=== PATIENT | female | born 1950 | race African-American/Black ===

== ENCOUNTER 2017-01-02 10:29 | Inpatient (IN) ==
[2017-01-02 11:03] LABS: Basophils % 0.6 % (0.0-0.8); Eosinophils # 0.2 10*3/uL (0.0-0.87); Eosinophils % 6.2 % (0.00-10.9); Hematocrit 25.8 VOL% (35.7-47.0); Lymphocytes # 1.1 10*3/uL (1.4-4.0); Lymphocytes % 33.2 % (21.3-54.2); Mean Corpuscular Hemoglobin 27 PG (27-34); Mean Corpuscular Volume 86.9 FL (87-102); Mean Platelet Volume 11.4 FL (9.6-12.0); Monocytes # 0.4 10*3/uL (0.11-0.8); Monocytes % 11.7 % (1.7-12.7); Neutrophils # 1.6 10*3/uL (1.4-7.4); Neutrophils % 48.3 % (38.7-73.9); Platelet Count 84 T/CUMM (130-400); Red Blood Count 2.97 MC/CUMM (3.8-5.5); Red Cell Distribution Width 20.9 % (9.3-17.3); White Blood Count 3.3 T/CUMM (4-12)
[2017-01-02 11:13] LABS: PT Patient Result 10.4 SECS; Partial Thromboplastin Time 25.9 SECS (0-40)
[2017-01-02 11:45] LABS: Alanine Aminotransferase 25 U/L (13-56); Albumin 3.5 G/DL (3.4-5.0); Alkaline Phosphatase 48 U/L (45-117); Aspartate Amino Transferase 22 U/L (0-37); Bilirubin,Total < 0.39 MG/DL (0.2-1.0); Blood Urea Nitrogen 24 MG/DL (7-18); Calcium 8.9 MG/DL (8.5-10.1); Glucose 160 MG/DL (74-106); Osmolality,Calculated 287.3 MOS/KG (273-304); Potassium 4.2 MMOL/L (3.5-5.1); Sodium 141 MMOL/L (136-145); Total Protein 6.6 G/DL (6.4-8.3)
--- NOTE | 2017-01-02 12:25 | Emergency Department Note ---
Haroon Lopez Brooke, am scribing for, and in the presence of, Thom Nino MD 10:53. Trung Lopez Hans, MD, personally performed the services described in this documentation, ascribed by Madisyn Patiño in my presence, and it is both accurate and complete . Arrival - Arrival Chief Complaint: GI Bleed/Rectal Stated Complaint: rectal bleeding ED Nursing Triage Note: Pt c/o bright red rectal bleeding and weakness started this am. Denies abd pain. Mode of Arrival: Wheelchair Limitations: No Limitations Source: Patient, RN Notes Reviewed Time Seen by Provider: 01/02/17 10:41 - History of Present Illness HPI Narrative: Patient is a 66 year old female who presents to the ED with c/o rectal bleeding that started this morning. Patient was diagnosed with colon cancer on December 05, 2016. She is scheduled to have her large intestines removed on Thursday, by Dr. Pratt. Patient describes the blood as bright red but denies any clots. She only notices the blood when she has a bowel movement and says it is not a lot of blood. She does have hemorrhoids but says the bleeding she is having today is worse than the bleeding she normally has with the hemorrhoids. She says she had some "serous" bleeding in June 2016 and says she was told she had diverticulosis. Patient also complains of her legs being weak and lack of energy but denies having any abdominal pain. Patient says she has bruised easily for "years." She also has PMHx of NIDDM, RA, anemia, carpal tunnel syndrome, and eczema. She takes ASA daily. Onset (ago): day(s) (1) Allergies/Adverse Reactions: Allergies Allergy/AdvReac Type Severity Reaction Status Date / Time No Known Allergies Allergy Verified 07/01/16 15:19 Home Medications: Home Medications Medication Instructions Recorded Confirmed Type Gabapentin 100 mg PO TID 07/01/16 01/02/17 History Meloxicam [Mobic] 7.5 mg PO BID 07/01/16 01/02/17 History Metformin HCl 500 mg PO BID 07/01/16 01/02/17 History glipiZIDE [Glipizide] 5 mg PO BID 07/01/16 01/02/17 History Pantoprazole Sodium 1 tablet PO DAILY 12/22/16 01/02/17 History Aspirin EC Tab 325 mg PO DAILY 01/02/17 01/02/17 History Cyanocobalamin Tab [Vitamin B12 500 mcg PO QPM 01/02/17 01/02/17 History Tab] Review of System - Review of System 12 point system: reviewed and no additional remarkable complaints except as stated - Review of System Constitutional: Absent: fever Respiratory: Absent: respiratory distress Gastrointestinal: Present: hematochezia. Absent: abdominal pain Skin: Absent: rash Neurological: Present: weakness (generalized) Medical,Surgical,& Family Hx - Medical History Neurology: No history of: Seizures HEENT: History of: Ear Problem (SLIGHT [place]), Eye Problem (GLASSES) Endocrine: History of: Diabetes Mellitus (NIDDM) Rheumatology: History of;: Rheumatoid Arthritis Respiratory: No history of: Respiratory Problems (FLU VAC- YES; PNEU VAC- YES.) Gastrointestinal: History of: Diverticulitis/ Diverticulosis, Gastrointestinal Bleed, Gastrointestinal Cancer Musculoskeletal: History of: Musculoskeletal Problems (CARPAL TUNNEL SYNDROME) Hematology: History of: Anemia Reproductive: History of: Breast Cancer (BENIGN CYSTS) Other: History of: Cancer (COLON CA), Eczema - Surgical History HEENT Surgeries: Surgical HX of: Tonsilectomy & Adenoidectomy Abdominal Surgeries: Surgical HX of: Colonoscopy Reproductive Surgeries: Surgical HX of;: Breast Surgery (YESI MASTECTOMY), Tubal Ligation - Family History Family History: Reports;: Family Cancer (MOTHER FATHER SISTER) - Social History Smoking Status: Never smoker Exam Vital Signs: Vital Signs Temperature 99.1 F 01/02/17 10:29 Pulse Rate 105 H 01/02/17 10:29 Respiratory Rate 18 01/02/17 10:29 Blood Pressure 101/67 01/02/17 10:29 O2 Sat by Pulse Oximetry 100 01/02/17 10:29 - General General appearance: alert, in no apparent distress - Head Head exam: Present: atraumatic, normocephalic - Eye Eye exam: Present: normal appearance, PERRL, EOMI - ENT ENT exam: Present: normal exam - Neck Neck exam: Present: normal inspection - Chest Chest inspection: Present: normal inspection, symmetric chest wall rise - Respiratory Respiratory exam: Present: normal lung sounds bilaterally - Cardiovascular Cardiovascular exam: Present: regular rate, normal rhythm, normal heart sounds - Abdominal Exam Abdominal exam: Present: soft. Absent: distention, tenderness - Rectal Exam Rectal exam: Present: heme (+) stool, hemorrhoids (internal and external- no active bleeding), other (blood in the rectal vault). Absent: mass - Extremities Exam Extremities exam: Present: normal inspection - Back Exam Back exam: Present: normal inspection - Neurological Exam Neurological exam: Present: alert, oriented X3 - Psychiatric Psychiatric exam: Present: normal affect, normal mood - Skin Skin exam: Present: warm, dry, intact, normal color Course Course Narrative: This patient was evaluated with blood work and type and screen was ordered. The patient was anemic and had some dyspnea as well as some tachycardia when she came in with painless rectal bleeding. Her rectal exam revealed some internal hemorrhoids but there is no friability or active bleeding from these. She is going to be seen for admission for transfusion given her symptomatic anemia and for rectal bleeding. She is on the schedule for a colectomy by Dr. Pratt on Thursday. Dr. Wick is her structural iron erector. Results - Labs CBC & BMP: 01/02/17 10:55 01/02/17 10:55 Lab Results: I have reviewed the patients labs Labs: Laboratory Tests 01/02/17 01/02/17 10:55 10:55 WBC 3.3 L RBC 2.97 L Hgb 8.0 L Hct 25.8 L MCV 86.9 L MCH 27 MCHC 31.0 L RDW 20.9 H Plt Count 84 L MPV 11.4 Neut % (Auto) 48.3 Lymph % (Auto) 33.2 [place] % (Auto) 11.7 Eos % (Auto) 6.2 Baso % (Auto) 0.6 Neut # (Auto) 1.6 Lymph # (Auto) 1.1 L [place] # (Auto) 0.4 Eos # (Auto) 0.2 Baso # (Auto) 0.0 Immature Gran % 0.0 Nucleated RBC % 0.0 Immature Gran # 0.00 Nucleated RBCs # 0.00 INR 1.0 PT Patient/Control Mix 10.4 Circ Anticoag PTT 25.9 Disposition Clinical Impression: Lower gastrointestinal hemorrhage Case discussed with: patient Disposition: Still a Patient Condition: Stable Instructions: Rectal Bleeding (ED) Time of Disposition: 12:25
[2017-01-02 12:39] LABS: Hypochromasia Slight; Polychromasia Slight
[2017-01-02] MEDS ORDERED: ACETAMINOPHEN 325 MG TABLET PO PRN (13:13)
[2017-01-02] MEDS ORDERED: guaiFENesin/DM ER 600-30 MG TABLET PO PRN (13:13)
[2017-01-02] MEDS ORDERED: PROMETHAZINE 25 MG/1 ML VIAL IM PRN (13:13)
[2017-01-02] MEDS ORDERED: MORPHINE 2 MG/1 ML SYRINGE IV PRN (13:13)
[2017-01-02] MEDS ORDERED: ONDANSETRON 4 MG/2 ML VIAL IV PRN (13:13)
[2017-01-02] MEDS ORDERED: DOCUSATE SODIUM 100 MG CAPSULE PO PRN (13:13)
[2017-01-02] MEDS ORDERED: diphenhydrAMINE CAP 25 MG CAPSULE PO PRN (13:13)
--- NOTE | 2017-01-02 13:30 | Hospitalist History & Physical ---
Assessment and Plan - Time spent with patient Time spent with patient: Greater than 30 minutes (1) Pancytopenia Status: Acute Current Visit: Yes (2) Colon cancer Status: Acute Assessment and plan: 66-year-old -Citizen Of [place] female with history of diabetes, colon cancer, pancytopenia admitted with rectal bleeding. Patient does have colon cancer and is scheduled for colectomy by Dr. Santa VAZQUEZ this coming Thursday. Unsure if the bleeding is from diverticulitis cyst seen on Dr. Wick scope in November or if it is from this mass in her colon. We will go ahead and consult Dr. Wick and Dr. Santa VAZQUEZ for evaluation. We will go ahead and give patient 1 unit of blood and some fluids. We will put her on sliding scale insulin for her diabetes and monitor closely. Dr. Liu will see and examine patient with further recommendations to follow Current Visit: Yes (3) Diabetes Status: Acute Current Visit: Yes (4) Lower gastrointestinal hemorrhage Status: Acute Current Visit: Yes History of Present Illness Chief complaint: Rectal bleeding History of present illness: Ms. Nash is a 66 year old -Citizen Of [place] female with history of diabetes, RA , anemia with intermittent pancytopenia, carpal tunnel syndrome, colon cancer and eczema presenting to the ED with rectal bleeding and fatigue that started this morning. Patient states he was having a bowel movement when she had bright red blood per rectum in the toilet. She denies dizziness, shortness of breath, chest pain, abdominal pain, or lower extremity swelling. She was admitted back in June with a GI bleed and was supposed to follow-up with [facility] but never did until November. He did a scope and found a colon cancer and she was subsequently sent to Dr. Pratt the third for evaluation. Patient is scheduled on 01/06/2017 for a colectomy. Patient has a low-grade fever and she is mildly tachycardic with her blood pressure 101/67. She is pancytopenic with an H&H of 8/25.8. Her platelets are 84. 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 She also states her sister of leukemia. After discussion with Dr. Nino the ED physician and Dr. Liu the admitting hospitalist it was agreed patient would be admitted for further evaluation. Home Medications Medication Instructions Recorded Confirmed Type Gabapentin 100 mg PO TID 07/01/16 01/02/17 History Meloxicam [Mobic] 7.5 mg PO BID 07/01/16 01/02/17 History Metformin HCl 500 mg PO BID 07/01/16 01/02/17 History glipiZIDE [Glipizide] 5 mg PO BID 07/01/16 01/02/17 History Pantoprazole Sodium 1 tablet PO DAILY 12/22/16 01/02/17 History Aspirin EC Tab 325 mg PO DAILY 01/02/17 01/02/17 History Cyanocobalamin Tab [Vitamin B12 500 mcg PO QPM 01/02/17 01/02/17 History Tab] Allergies Allergy/AdvReac Type Severity Reaction Status Date / Time No Known Allergies Allergy Verified 07/01/16 15:19 Medical,Surgical,& Family Hx - Medical History Neurology: No history of: Seizures HEENT: History of: Ear Problem ([place]IGHT [place]), Eye Problem (GLASSES) Endocrine: History of: Diabetes Mellitus (NIDDM) Rheumatology: History of;: Rheumatoid Arthritis Respiratory: No history of: Respiratory Problems (FLU VAC- YES; PNEU VAC- YES.) Gastrointestinal: History of: Diverticulitis/ Diverticulosis, Gastrointestinal Bleed, Gastrointestinal Cancer Musculoskeletal: History of: Musculoskeletal Problems (CARPAL TUNNEL SYNDROME) Hematology: History of: Anemia Reproductive: History of: Breast Cancer (BENIGN CYSTS) Other: History of: Cancer (COLON CA), Eczema - Surgical History HEENT Surgeries: Surgical HX of: Tonsilectomy & Adenoidectomy Abdominal Surgeries: Surgical HX of: Colonoscopy Reproductive Surgeries: Surgical HX of;: Breast Surgery (YESI MASTECTOMY), Tubal Ligation - Family History Family History: Reports;: Family Cancer (MOTHER FATHER SISTER) - Social History Smoking Status: Former smoker Frequency of Alcohol Use: None Type of Drug Use: None Marital Status: Single Lives With:: Alone Functional capacity: independent ambulation Review of systems: A complete 10 system review of systems was obtained and pertinent positives and negatives per HPI Exam - Constitutional Vitals: Period Temp Pulse Resp BP Sys/Cornell Pulse Ox Last 24 Hr 99.1 F-99.1 F 105-105 18-18 101-101/67-67 100 Exam: Constitutional System: No distress. No tremulousness. Cachectic Head: Normocephalic, atraumatic. Ears, Nose and Throat System: No evidence of Otitis or Mastoiditis. No epistaxis or discharge Eyes System: Pupils equal, round, and reactive. Extraocular muscles intact. Neck: Supple, without adenopathy, No jugular venous distention. No thyromegaly, neck mass, or prior surgery apparent. Respiratory System: Chest clear to auscultation. Cardiovascular System: Heart with regular rate and rhythm. No murmur. GI System: Abdomen soft, nontender. Normo active bowel sounds present. Musculoskeletal System: limbs with no pedal edema. Full distal pulses. Neurological System: No discernable sensory deficit. No aphasia Psychiatric System: Conversation is rational Results - Labs CBC & BMP: 01/02/17 10:55 01/02/17 10:55 Lab Results: I have reviewed the past 24 hour labs Quality Measures - VTE Contraindication to Pharmacological VTE Prophylaxis: High Risk of Bleeding
[2017-01-02] MEDS ORDERED: DEXTROSE 50% 25 GM/50 ML VIAL IV PRN (13:34)
[2017-01-02] MEDS ORDERED: GLUCAGON 1 MG VIAL IM PRN (13:34)
[2017-01-02] MEDS ORDERED: SODIUM CHLORIDE 0.9% 250 ML IV PRN (13:37)
[2017-01-02] MEDS ORDERED: PANTOPRAZOLE 20 MG TABLET PO SCH (14:00)
--- NOTE | 2017-01-02 14:57 | Gastrointestinal Consult Note ---
Assessment and Plan (1) Cancer of ascending colon Status: Acute Assessment and plan: This colon cancer has a deep ulceration in it and I have no doubt that this is likely the source the patient's blood loss. She has dropped her hematocrit from baseline of 31% down to 25% since this was discovered back on 12/05/16. Unfortunately there is little more to do then resected that segment of colon that is involved likely with right hemicolectomy. Endoscopic therapy will not work adequately for this lesion. Would suggest expedited surgery. Dr. Pratt and I have discussed getting a hematology oncology consultation in place for her thrombocytopenia/pancytopenia prior to going to surgery. I do note that the patient has had this for many years and has undergone bilateral mastectomy without significant difficulties. She did have some problems with a prior tubal ligation and required a blood transfusion at that time. Current Visit: Yes (2) Lower gastrointestinal hemorrhage Status: Acute Assessment and plan: As noted above. Patient is getting blood transfusion at this time. Current Visit: Yes (3) Pancytopenia Status: Acute Assessment and plan: The patient does have a lifelong history of anemia with her most recent CBC done on 11/17/16 demonstrating a white blood cell count that was decreased to 4.1 , a hematocrit of 31.1%, platelet count of 94, and MCV of 82.5. The earliest CBC we have on file for this patient at the [facility] was from 01/24/09 which demonstrated similar results at that time a WBC of 2.8 with an improved hematocrit of 37.1% and a platelet count of 72 at that time. Aside from a recent iron deficiency anemia, the pancytopenia has been long-term. Apparently this has interfered with a previous tubal ligation but not her mastectomies in the past. Current Visit: Yes History of Present Illness Chief complaint: Rectal bleeding and anemia. History of present illness: Ms. Nash is a 66 year old female who is known to have a history of bright red blood per rectum which actually started back in June 2016 and a lifelong history of mild anemia she previously been scoped by Dr. Dela Cruz back in January 2005 with diverticulosis and a good visualization of approximately 90% of her colon at that time. She was referred to me after iron deficiency anemia was discovered when the patient presented with a hematocrit of 31% and a ferritin of 9 with an iron saturation of only 7% and TIBC of 445 back on 11/17/16. I saw her in the office on 11/27/16 and we took her to both EGD and colonoscopy with the EGD done on 12/19/16 which demonstrated some mild diffuse gastritis that was felt to be erosive with biopsies taken that were negative for Helicobacter pylori. Patient had previously had a colonoscopy done on 12/05/16 which demonstrated a 2.5 cm ulcerated mass in the proximal ascending colon that showed invasive adenocarcinoma on biopsy. This was injected with Pam ink and took up approximately one third of the colon wall. I strongly suspect this is probably the source the patient's rectal bleeding at this time and the cause for her anemia. Over this last month and a half it appears that she has dropped her hematocrit another 6% and she is now down to 25.8 and hemoglobin of 8 g/dL on exam today. Unfortunately there is little else to offer aside from her right hemicolectomy that she had arrange to have done very shortly in any event. This was to be done on 01/06/[address] Pratt. Hopefully this could be pushed forward now that she is in for lobito bleeding. She is feeling fatigued, and speaking to the volume of blood she states that this morning she had the sudden feeling of "dishrag legs" and when she first started passing the stool, the blood seemed to be "spurting out of me like milking a cow". I suspect that the tumor is involved to deep vessel in the proximal ascending colon. If she develops persistent hypotension this patient may be best served by sending her to the ICU however given her hematocrit check and pulse rate at this time the blood loss may not be quite this dramatic. Home Medications Medication Instructions Recorded Confirmed Type Gabapentin 100 mg PO TID 07/01/16 01/02/17 History Meloxicam [Mobic] 7.5 mg PO BID 07/01/16 01/02/17 History Metformin HCl 500 mg PO BID W/MEALS 07/01/16 01/02/17 History glipiZIDE [Glipizide] 5 mg PO BID W/MEALS 07/01/16 01/02/17 History Pantoprazole Sodium 1 tablet PO DAILY 12/22/16 01/02/17 History Aspirin EC Tab 325 mg PO DAILY 01/02/17 01/02/17 History Cyanocobalamin Tab [Vitamin B12 500 mcg PO QPM 01/02/17 01/02/17 History Tab] Allergies Allergy/AdvReac Type Severity Reaction Status Date / Time No Known Allergies Allergy Verified 07/01/16 15:19 Medical,Surgical,& Family Hx - Medical History Neurology: No history of: Seizures HEENT: History of: Ear Problem ([place]IGHT [place]), Eye Problem (GLASSES) Endocrine: History of: Diabetes Mellitus (NIDDM) Rheumatology: History of;: Rheumatoid Arthritis Respiratory: No history of: Respiratory Problems (FLU VAC- YES; PNEU VAC- YES.) Gastrointestinal: History of: Diverticulitis/ Diverticulosis, Gastrointestinal Bleed, Gastrointestinal Cancer Musculoskeletal: History of: Musculoskeletal Problems (CARPAL TUNNEL SYNDROME) Hematology: History of: Anemia Reproductive: History of: Breast Cancer (BENIGN CYSTS) Other: History of: Cancer (COLON CA), Eczema - Surgical History HEENT Surgeries: Surgical HX of: Tonsilectomy & Adenoidectomy Abdominal Surgeries: Surgical HX of: Colonoscopy Reproductive Surgeries: Surgical HX of;: Breast Surgery (YESI MASTECTOMY), Tubal Ligation - Family History Family History: Reports;: Family Cancer (MOTHER FATHER SISTER) - Social History Smoking Status: Former smoker Frequency of Alcohol Use: None Type of Drug Use: None - Constitutional Constitutional: Present: anorexia, fatigue, weight loss - EENT Eyes: Absent: loss of vision Nose, mouth and throat: Absent: dysphagia, epistaxis - Cardiovascular Cardiovascular: Absent: chest pain at rest, claudication, orthopnea, palpitations - Respiratory Respiratory: Absent: cough, wheezing, change in phlegm color - Gastrointestinal Gastrointestinal: Present: constipation, cramping, heartburn, nausea. Absent: abdominal pain, early satiety, hematemesis, vomiting - Genitourinary Genitourinary: Absent: flank pain - Musculoskeletal Musculoskeletal: Absent: muscle weakness - Neurological Neurological: Present: confusion. Absent: dizziness, focal weakness, syncope - Psychiatric Psychiatric: Present: memory loss. Absent: anxiety - Endocrine Endocrine: Present: fatigue. Absent: cold intolerance, heat intolerance - Hematologic/Lymphatic Hematologic/Lymphatic: Present: easy bruising Exam - Constitutional Vitals: Period Temp Pulse Resp BP Sys/Cornell Pulse Ox Last 24 Hr 99.1 F-99.1 F 105-105 18-18 101-101/67-67 100 General appearance: under weight - Eye Eye exam: Present: EOMI Pupils: Present: CINDY - Respiratory Respiratory exam: Present: clear to auscultation bilaterally - Cardiovascular Cardiovascular exam: Present: regular rate and rhythm, systolic murmur - GI/Abdominal GI/Abdominal exam: Present: normal bowel sounds, soft, other (Stool is reported to be grossly guaiac positive). Absent: distended, tenderness, rebound - Neurological Exam Neurological exam: Present: alert, oriented X3. Absent: altered - Psychiatric Psychiatric exam: Present: normal affect, normal mood - Skin Skin exam: Present: warm Results - Labs CBC & BMP: 01/02/17 10:55 01/02/17 10:55 Quality Measures - VTE Contraindication to Pharmacological VTE Prophylaxis: High Risk of Bleeding Specialty Discharge - Follow Up or Referrals
[2017-01-02] MEDS: SODIUM CHLORIDE 0.9% 1,000 ML IV SCH (15:39)
[2017-01-02] MEDS: PANTOPRAZOLE 40 MG TABLET PO SCH (15:39)
[2017-01-02] MEDS: GABAPENTIN 100 MG CAPSULE PO SCH ×2 (15:39→21:10)
--- NOTE | 2017-01-02 16:23 | General Surgery Consult Note ---
Assessment and Plan - Time spent with patient Time spent with patient: Greater than 30 minutes (1) Lower gastrointestinal hemorrhage Status: Acute Assessment and plan: She does not appear to have significant ongoing hemorrhage. We will need to check serial hematocrits. It is most likely that her bleeding source is from the colon cancer. I discussed this case with Dr. Lutz who will assess whether he feels she needs to have a colonoscopy to look for another bleeding source. Current Visit: Yes (2) Colon cancer Status: Acute Assessment and plan: She has plans for an ascending colectomy and we have discussed this before. We can do this once we feel her bleeding status and coagulation status is stable. Current Visit: Yes (3) Pancytopenia Status: Acute Assessment and plan: We will get Dr. Villanueva's opinion regarding this as to whether he thinks this will create any problems with surgery. Current Visit: Yes History of Present Illness Chief complaint: Rectal bleeding History of present illness: Ms. Nash is a 66 year old female With a known a sending colon cancer who presents with a day of bright red rectal bleeding that she thinks was probably less than a cup. She had some associated weakness of her lower extremities but no syncope. She has not had abdominal pain. She has not had chest pain or shortness of breath or palpitations. She was admitted and blood transfusion has been ordered. She is noted to be thrombocytopenia which is a chronic condition for her. Home Medications Medication Instructions Recorded Confirmed Type Gabapentin 100 mg PO TID 07/01/16 01/02/17 History Meloxicam [Mobic] 7.5 mg PO BID 07/01/16 01/02/17 History Metformin HCl 500 mg PO BID W/MEALS 07/01/16 01/02/17 History glipiZIDE [Glipizide] 5 mg PO BID W/MEALS 07/01/16 01/02/17 History Pantoprazole Sodium 1 tablet PO DAILY 12/22/16 01/02/17 History Aspirin EC Tab 325 mg PO DAILY 01/02/17 01/02/17 History Cyanocobalamin Tab [Vitamin B12 500 mcg PO QPM 01/02/17 01/02/17 History Tab] Allergies Allergy/AdvReac Type Severity Reaction Status Date / Time No Known Allergies Allergy Verified 07/01/16 15:19 Medical,Surgical,& Family Hx - Medical History Neurology: No history of: Seizures HEENT: History of: Ear Problem (SLIGHT PALA), Eye Problem (GLASSES) Endocrine: History of: Diabetes Mellitus (NIDDM) Rheumatology: History of;: Rheumatoid Arthritis Respiratory: No history of: Respiratory Problems (FLU VAC- YES; PNEU VAC- YES.) Gastrointestinal: History of: Diverticulitis/ Diverticulosis, Gastrointestinal Bleed, Gastrointestinal Cancer Musculoskeletal: History of: Musculoskeletal Problems (CARPAL TUNNEL SYNDROME) Hematology: History of: Anemia Other: History of: Cancer (COLON CA), Eczema - Surgical History HEENT Surgeries: Surgical HX of: Tonsilectomy & Adenoidectomy Abdominal Surgeries: Surgical HX of: Colonoscopy Comment Only: Abdominal Surgery (scheduled for surgery next Thursday.) Reproductive Surgeries: Surgical HX of;: Breast Surgery (YESI MASTECTOMY), Tubal Ligation - Family History Family History: Reports;: Family Cancer (MOTHER FATHER SISTER) - Social History Smoking Status: Former smoker Frequency of Alcohol Use: None Type of Drug Use: None - Constitutional Constitutional: Absent: anorexia, chills, fever(s), weight loss - Cardiovascular Cardiovascular: Absent: chest pain at rest, chest pain with activity, lightheadedness, palpitations, syncope - Respiratory Respiratory: Absent: cough, dyspnea, hemoptysis, dyspnea on exertion - Gastrointestinal Gastrointestinal: Present: hematochezia. Absent: abdominal pain, cramping, hematemesis, melena, nausea, vomiting, jaundice - Genitourinary Genitourinary: Absent: hematuria - Musculoskeletal Musculoskeletal: Present: muscle weakness. Absent: back pain - Neurological Neurological: Absent: focal weakness, syncope - Endocrine Endocrine: Absent: polyuria Hematologic/Lymphatic: Present: easy bleeding, easy bruising Exam - Constitutional Vitals: Period Temp Pulse Resp BP Sys/Cornell Pulse Ox Last 24 Hr 98.2 F-99.1 F 74-105 16-18 100-110/51-67 95-100 General appearance: no acute distress - Head Head exam: Present: normocephalic - Eye Eye exam: Absent: scleral icterus - ENT Mouth exam: Present: normal voice - Neck Neck exam: Present: trachea midline - Respiratory Respiratory exam: Present: clear to auscultation bilaterally. Absent: accessory muscle use - Cardiovascular Cardiovascular exam: Present: RRR - GI/Abdominal GI/Abdominal exam: Present: soft. Absent: distended, guarding, mass, tenderness , rebound - Extremities Exam Extremities exam: Absent: edema - Back Exam Back exam: Present: normal inspection. Absent: CVA tenderness (L), CVA tenderness (R) - Neurological Exam Neurological exam: Present: alert, oriented X3. Absent: motor sensory deficit Speech: Present: normal - Skin Skin exam: Present: normal color Quality Measures - VTE Contraindication to Pharmacological VTE Prophylaxis: High Risk of Bleeding Results - Labs CBC & BMP: 01/02/17 10:55 01/02/17 10:55 Lab Results: I have reviewed the past 24 hour labs Specialty Discharge - Follow Up or Referrals
[2017-01-02] MEDS: INSULIN LISPRO 100 UNIT/ML SUBCUT SCH (16:58)
[2017-01-02] MEDS ORDERED: CYANOCOBALAMIN 500 MCG TABLET PO SCH (19:00)
[2017-01-02] MEDS: CYANOCOBALAMIN 500 MCG TABLET PO SCH (21:10)
[2017-01-02 21:41] LABS: Basophils % 0.6 % (0.0-0.8); Eosinophils # 0.3 10*3/uL (0.0-0.87); Eosinophils % 9.7 % (0.00-10.9); Hematocrit 27.3 VOL% (35.7-47.0); Hemoglobin 8.9 GM/DL (12.0-16.0); Immature Granulocytes % 0.3 %; Immature Granulocytes Absolute 0.01 #; Lymphocytes # 1.3 10*3/uL (1.4-4.0); Lymphocytes % 37.2 % (21.3-54.2); Mean Corpuscular HGB Conc 32.6 GM/DL (32-36); Mean Corpuscular Hemoglobin 28 PG (27-34); Mean Corpuscular Volume 85.3 FL (87-102); Mean Platelet Volume 11.9 FL (9.6-12.0); Monocytes # 0.5 10*3/uL (0.11-0.8); Monocytes % 14.8 % (1.7-12.7); Neutrophils # 1.3 10*3/uL (1.4-7.4); Neutrophils % 37.4 % (38.7-73.9); Red Cell Distribution Width 20.1 % (9.3-17.3); White Blood Count 3.5 T/CUMM (4-12)
[2017-01-02 21:46] LABS: Platelet Count 83 T/CUMM (130-400)
[2017-01-02 21:52] LABS: PT Patient Result 10.6 SECS
[2017-01-02 23:13] LABS: Eosinophils 5 % (0-10); Lymphocytes 40 % (20-55); Segmented Neutrophils 49 % (50-85); Total Cells Counted 100
[2017-01-02 23:15] LABS: Platelet Estimate Decreased
[2017-01-02 23:16] LABS: Anisocytosis 1+; Microcytosis 1+
[2017-01-03] MEDS: SODIUM CHLORIDE 0.9% 1,000 ML IV SCH ×4 (01:45→23:48)
[2017-01-03 04:32] LABS: Basophils % 0.6 % (0.0-0.8); Eosinophils # 0.3 10*3/uL (0.0-0.87); Eosinophils % 10.7 % (0.00-10.9); Hematocrit 23.7 VOL% (35.7-47.0); Hemoglobin 7.4 GM/DL (12.0-16.0); Lymphocytes # 1.2 10*3/uL (1.4-4.0); Lymphocytes % 39.1 % (21.3-54.2); Mean Corpuscular HGB Conc 31.2 GM/DL (32-36); Mean Corpuscular Hemoglobin 27 PG (27-34); Mean Corpuscular Volume 86.2 FL (87-102); Mean Platelet Volume 11.1 FL (9.6-12.0); Monocytes # 0.4 10*3/uL (0.11-0.8); Neutrophils # 1.2 10*3/uL (1.4-7.4); Neutrophils % 37.6 % (38.7-73.9); Red Blood Count 2.75 MC/CUMM (3.8-5.5); Red Cell Distribution Width 20.1 % (9.3-17.3); White Blood Count 3.2 T/CUMM (4-12)
[2017-01-03 04:43] LABS: Platelet Count 76 T/CUMM (130-400)
[2017-01-03 05:02] LABS: Calcium 8.4 MG/DL (8.5-10.1); Magnesium 1.9 MG/DL (1.8-2.4); Osmolality,Calculated 296.3 MOS/KG (273-304); Potassium 4.2 MMOL/L (3.5-5.1)
[2017-01-03 06:09] LABS: Eosinophils 12 % (0-10); Lymphocytes 47 % (20-55); Segmented Neutrophils 37 % (50-85)
[2017-01-03 06:11] LABS: Anisocytosis 1+; Hypochromasia 1+; Microcytosis 1+; Platelet Estimate Decreased
[2017-01-03 06:12] LABS: Total Cells Counted 100
[2017-01-03] MEDS: INSULIN LISPRO 100 UNIT/ML SUBCUT SCH ×2 (07:54→16:55)
[2017-01-03] MEDS: PANTOPRAZOLE 40 MG TABLET PO SCH (08:00)
[2017-01-03] MEDS: GABAPENTIN 100 MG CAPSULE PO SCH (08:00)
--- NOTE | 2017-01-03 09:17 | Oncology Consult Note ---
History of Present Illness Chief complaint: Adenocarcinoma of the colon History of present illness: Ms. Nash is a 66 year old female who presents with active GI bleeding. Her problem list includes: (1) Lower gastrointestinal hemorrhage She was admitted with acute GI blood loss that has now stopped. I have discussed her case with Dr. Pratt and will follow her and assist in evaluation. Transfusing 2 more units of packed red cells today. (2) adenocarcinoma of the ascending colon She has an adenocarcinoma of the ascending colon. Dr. Pratt3 believes this to be a and easily resectable tumor so we will not pursue additional scans at this point. I will be checking tumor markers in anticipation of surgery on Thursday. (3) Pancytopenia She gives no history of anything that might be causing marrow suppression and has not received any treatment for any prior malignancy. She has never been diagnosed as having malignancy part of this time. White cell count today is 3200 with an absolute neutrophil count of 1200. The hemoglobin is 7.4. The platelet count is 76,000. Home medications it could produce lowering of blood counts include the Prilosec that she was taking prior to this admission as well as Neurontin and meloxicam. Past medical history: She has no known allergies. She is diabetic and is on metformin and glipizide. She had bilateral simple mastectomies in 1993 but did not have malignancies. She has had a tubal ligation and also tonsillectomy and adenoidectomy. Family history: Her father had prostate cancer and liver cancer of some type Her sister had leukemia Her mother had a GRINDER malignancy of some type, apparently uterine Social history: She has never smoked. No alcohol. ROS Gen.: Her general health has been good. Eyes: No history of chronic disease, infections or visual loss. ENT: No history of chronic infections, epistaxis, chronic sore throat Lungs: No history of asthma, emphysema, hemoptysis, chronic pleurisy or long- term or chronic infections Cardiovascular: No history of angina, coronary artery disease, congestive heart failure, cardiovascular surgery or DVT/VTE GI: No history of upper or lower GI bleeding, melena, dysphagia, odynophagia, liver disease, gallbladder disease or pancreatic disease. : No history of kidney stones, chronic kidney infections or hematuria. Musculoskeletal: No history of chronic bone or joint pain or focal muscle atrophy or bone or joint deformity. Neurologic: No history of seizures, convulsions or paralysis. Psychiatric: No history of chronic psychiatric illness or psychiatric medications. Lymphatic: No history of significant or long-term lymphadenopathy Hematologic: No history of anemia, bleeding disorders or blood dyscrasias or long-term elevation or depression white cell count or petechiae. Skin: No history of chronic skin infections or rashes or significant skin lesions. Breasts: Although she has had several mastectomies, there was never any evidence of malignancy. She tells me that they were just lumpy. Endocrine: Positive for diabetes mellitus. Physical examination: General: She is somewhat thin but not cachectic and she is well-developed and well-nourished and in no acute distress otherwise. Eyes: Normal lids and conjunctivae. ENT: Her teeth are in moderately poor repair. Her mouth and pharynx are normal. Her oral mucosa is normal. Her hearing is normal. Neck: Her trachea is midline. She has no neck masses. Her thyroid is normal. Cardiovascular: Her heart rhythm is regular without murmur, gallop or rub. There is no jugular venous distention, clubbing, cyanosis or edema. Radial pulses are normal. Pulmonary: Breath sounds are relatively normal throughout without rubs, rales or rhonchi and there is symmetrical unlabored chest motion with respiration. Abdomen: There are no masses, organomegaly, ascites or significant tenderness. Bowel sounds are normal. Musculoskeletal: There is no focal muscle atrophy or bone or joint deformity other than possibly some mild arthritis in her hands. She does have some decreased range of motion of her fingers in her right hand suggestive of carpal tunnel syndrome. Neurologic: Cranial nerves II through XII are intact. There are no focal neurologic deficits. Nodes: There is no cervical, supraclavicular or axillary adenopathy. Skin: I see no significant skin lesions or abnormalities. She has had bilateral simple mastectomies with nipple sparing. Her pancytopenia may be related to medications. However, will recheck her blood counts a couple times before surgery. Lab work today includes white cell count of 3200 with an absolute neutrophil count of 1200. Her hemoglobin is 7.4 and she will be transfused. Her platelet count of 76,000. She had a comprehensive metabolic profile on January 02 that was essentially normal. Her INR has been done twice and is 1.0. I am going to check tumor markers and I think we should go ahead and stop the gabapentin. I will stop the proton pump inhibitor as well. See my orders. I will follow her with you. Thank you. Impression: Adenocarcinoma of the ascending colon apparently early stage anemia leukopenia thrombocytopenia type 2 diabetes history of carpal tunnel syndrome Home Medications Medication Instructions Recorded Confirmed Type Gabapentin 100 mg PO TID 07/01/16 01/02/17 History Meloxicam [Mobic] 7.5 mg PO BID 07/01/16 01/02/17 History Metformin HCl 500 mg PO BID W/MEALS 07/01/16 01/02/17 History glipiZIDE [Glipizide] 5 mg PO BID W/MEALS 07/01/16 01/02/17 History Pantoprazole Sodium 1 tablet PO DAILY 12/22/16 01/02/17 History Aspirin EC Tab 325 mg PO DAILY 01/02/17 01/02/17 History Cyanocobalamin Tab [Vitamin B12 500 mcg PO QPM 01/02/17 01/02/17 History Tab] Allergies Allergy/AdvReac Type Severity Reaction Status Date / Time No Known Allergies Allergy Verified 07/01/16 15:19 Medical,Surgical,& Family Hx - Medical History Neurology: No history of: Seizures HEENT: History of: Ear Problem (SLIGHT [place]), Eye Problem (GLASSES) Endocrine: History of: Diabetes Mellitus (NIDDM) Rheumatology: History of;: Rheumatoid Arthritis Respiratory: No history of: Respiratory Problems (FLU VAC- YES; PNEU VAC- YES.) Gastrointestinal: History of: Diverticulitis/ Diverticulosis, Gastrointestinal Bleed, Gastrointestinal Cancer Musculoskeletal: History of: Musculoskeletal Problems (CARPAL TUNNEL SYNDROME) Hematology: History of: Anemia Reproductive: History of: Breast Cancer (BENIGN CYSTS) Other: History of: Cancer (COLON CA), Eczema - Surgical History HEENT Surgeries: Surgical HX of: Tonsilectomy & Adenoidectomy Abdominal Surgeries: Surgical HX of: Colonoscopy Comment Only: Abdominal Surgery (scheduled for surgery next Thursday.) Reproductive Surgeries: Surgical HX of;: Breast Surgery (YESI MASTECTOMY), Tubal Ligation - Family History Family History: Reports;: Family Cancer (MOTHER FATHER SISTER) - Social History Smoking Status: Former smoker Frequency of Alcohol Use: None Type of Drug Use: None Exam - Constitutional Vitals: Period Temp Pulse Resp BP Sys/Cornell Pulse Ox Last 24 Hr 98.1 F-99.1 F 74-105 16-20 100-129/51-67 95-100 Results - Labs CBC & BMP: 01/03/17 04:07 01/03/17 04:07 Quality Measures - VTE Contraindication to Pharmacological VTE Prophylaxis: High Risk of Bleeding Specialty Discharge - Follow Up or Referrals
[2017-01-03] MEDS ORDERED: SODIUM CHLORIDE 0.9% 250 ML IV PRN (10:31)
--- NOTE | 2017-01-03 11:03 | Gastrointestinal Progress Note ---
Assessment and Plan (1) Cancer of ascending colon Status: Acute Assessment and plan: This colon cancer has a deep ulceration in it and I have no doubt that this is likely the source the patient's blood loss. She has dropped her hematocrit from baseline of 31% down to 25% since this was discovered back on 12/05/16. Unfortunately there is little more to do then resected that segment of colon that is involved likely with right hemicolectomy. Endoscopic therapy will not work adequately for this lesion. Would suggest expedited surgery. Dr. Pratt and I have discussed getting a hematology oncology consultation in place for her thrombocytopenia/pancytopenia prior to going to surgery. I do note that the patient has had this for many years and has undergone bilateral mastectomy without significant difficulties. She did have some problems with a prior tubal ligation and required a blood transfusion at that time. 01/03/17--Hematocrit is dropped down to 23% despite transfusion yesterday. Awaiting hematology oncology workup prior to taking to surgery according to Dr. Villanueva's recommendations Current Visit: Yes (2) Lower gastrointestinal hemorrhage Status: Acute Assessment and plan: As noted above. Patient is getting blood transfusion at this time. 01/03/17-- no gross output of rectal bleeding today. Will continue to watch her hematocrit drift over time. She may need more blood today. Current Visit: Yes (3) Pancytopenia Status: Acute Assessment and plan: The patient does have a lifelong history of anemia with her most recent CBC done on 11/17/16 demonstrating a white blood cell count that was decreased to 4.1 , a hematocrit of 31.1%, platelet count of 94, and MCV of 82.5. The earliest CBC we have on file for this patient at the [facility] [place] was from 01/24/09 which demonstrated similar results at that time a WBC of 2.8 with an improved hematocrit of 37.1% and a platelet count of 72 at that time. Aside from a recent iron deficiency anemia, the pancytopenia has been long-term. Apparently this has interfered with a previous tubal ligation but not her mastectomies in the past. 01/03/17--as per Dr. Villanueva who is seeing the patient today. Current Visit: Yes Gastroenterology - PN: Subj Interval history: No new complaints, no further episode of bleeding. No abdominal pain. She is awaiting surgery. She will likely need some more blood. Exam (Progress Note) - Constitutional Vitals: Period Temp Pulse Resp BP Sys/Cornell Pulse Ox Last 24 Hr 98.1 F-98.9 F 74-99 16-20 100-129/51-67 95-100 General appearance: no acute distress - Eye Eye exam: Present: EOMI Pupils: Present: CINDY - Respiratory Respiratory exam: Present: clear to auscultation bilaterally. Absent: rhonchi, stridor, wheezes - Cardiovascular Cardiovascular exam: Present: regular rate and rhythm - GI/Abdominal GI/Abdominal exam: Present: normal bowel sounds, soft. Absent: distended, guarding, tenderness, rebound - Back Exam Back exam: Present: normal inspection - Neurological Exam Neurological exam: Present: alert, oriented X3 - Psychiatric Psychiatric exam: Present: normal affect, normal mood Results - Labs CBC & BMP: 01/03/17 04:07 01/03/17 04:07 Specialty Discharge - Follow Up or Referrals
--- NOTE | 2017-01-03 11:23 | General Surgery Progress Note ---
Assessment and Plan (1) Lower gastrointestinal hemorrhage Status: Acute Assessment and plan: She does not appear to have significant ongoing hemorrhage. We will need to check serial hematocrits. It is most likely that her bleeding source is from the colon cancer. I discussed this case with Dr. Lutz who will assess whether he feels she needs to have a colonoscopy to look for another bleeding source. 01/03: She is anemic but does not appear to be actively bleeding. This should be stabilized prior to surgery. I do not think we need acute surgical intervention to stop hemorrhage at this point. She is being evaluated by Dr. Villanueva to see if she has a bleeding tendency that will increase her risk of perioperative bleeding. Current Visit: Yes (2) Colon cancer Status: Acute Assessment and plan: She has plans for an ascending colectomy and we have discussed this before. We can do this once we feel her bleeding status and coagulation status is stable. Current Visit: Yes (3) Pancytopenia Status: Acute Assessment and plan: We will get Dr. Villanueva's opinion regarding this as to whether he thinks this will create any problems with surgery. Current Visit: Yes Subjective Patient reports: Present: feels better. Absent: blood in stool, shortness of breath Exam - Constitutional Vitals: Period Temp Pulse Resp BP Sys/Cornell Pulse Ox Last 24 Hr 98.1 F-98.9 F 74-99 16-20 100-129/51-67 95-100 General appearance: no acute distress - Head Head exam: Present: normocephalic - Respiratory Respiratory exam: Absent: accessory muscle use - GI/Abdominal GI/Abdominal exam: Present: soft. Absent: distended, guarding, tenderness, rebound - Neurological Exam Neurological exam: Present: alert, oriented X3 Speech: Present: normal Results - Labs CBC & BMP: 01/03/17 04:07 01/03/17 04:07 Lab Results: I have reviewed the past 24 hour labs Quality Measures - VTE Contraindication to Pharmacological VTE Prophylaxis: High Risk of Bleeding Specialty Discharge - Follow Up or Referrals
[2017-01-03 12:11] LABS: Folate 12.3 NG/ML (5.4-24.0)
--- NOTE | 2017-01-03 13:04 | Hospitalist Progress Note ---
Assessment and Plan - Time spent with patient Time spent with patient: Greater than 30 minutes (1) Colon cancer Status: Acute Assessment and plan: Defer to consulting services regarding this. Appreciate their assistance. Current Visit: Yes (2) Diabetes Status: Acute Assessment and plan: Continue current management. Current Visit: Yes (3) Lower gastrointestinal hemorrhage Status: Acute Assessment and plan: No recurrence of bleeding however will administer 2 units packed red blood cells. Current Visit: Yes (4) Acute blood loss anemia Status: Acute Assessment and plan: See above. Current Visit: Yes Hospitalist: Subjective Interval history: Eduard has no complaints this morning. She states she has not had any recurrence of bloody bowel movement. She has been evaluated by gastroenterology , surgery and oncology. Exam - Constitutional Vitals: Period Temp Pulse Resp BP Sys/Cornell Pulse Ox Last 24 Hr 98.1 F-99.1 F 74-99 16-20 100-129/51-67 95-100 General appearance: no acute distress - Head Head exam: Present: normocephalic, atraumatic - Eye Eye exam: Present: EOMI Pupils: Present: CINDY - ENT ENT exam: Present: normal exam - Neck Neck exam: Present: normal inspection - Respiratory Respiratory exam: Present: clear to auscultation bilaterally. Absent: rhonchi, wheezes - Cardiovascular Cardiovascular exam: Present: regular rate and rhythm. Absent: gallop, rubs, systolic murmur - GI/Abdominal GI/Abdominal exam: Present: normal bowel sounds, soft. Absent: distended, firm , guarding, tenderness, rebound - Extremities Exam Extremities exam: Present: normal inspection. Absent: calf tenderness, edema Results - Labs CBC & BMP: 01/03/17 04:07 01/03/17 04:07 Lab Results: I have reviewed the past 24 hour labs Quality Measures - VTE Contraindication to Pharmacological VTE Prophylaxis: High Risk of Bleeding Specialty Discharge - Follow Up or Referrals
[2017-01-03] MEDS: SUCRALFATE 1 GM/10 ML UDCUP PO SCH ×2 (16:54→21:25)
[2017-01-03] MEDS: CYANOCOBALAMIN 500 MCG TABLET PO SCH (21:25)
[2017-01-04 05:17] LABS: Basophils % 0.6 % (0.0-0.8); Eosinophils # 0.4 10*3/uL (0.0-0.87); Eosinophils % 11.7 % (0.00-10.9); Hematocrit 30.7 VOL% (35.7-47.0); Hemoglobin 10.1 GM/DL (12.0-16.0); Lymphocytes # 1.2 10*3/uL (1.4-4.0); Lymphocytes % 34.6 % (21.3-54.2); Mean Corpuscular HGB Conc 32.9 GM/DL (32-36); Mean Corpuscular Hemoglobin 28 PG (27-34); Mean Corpuscular Volume 85.3 FL (87-102); Mean Platelet Volume 12.3 FL (9.6-12.0); Monocytes # 0.4 10*3/uL (0.11-0.8); Monocytes % 12.7 % (1.7-12.7); Neutrophils # 1.3 10*3/uL (1.4-7.4); Neutrophils % 40.4 % (38.7-73.9); Platelet Count 65 T/CUMM (130-400); Red Cell Distribution Width 17.8 % (9.3-17.3); White Blood Count 3.3 T/CUMM (4-12)
[2017-01-04 05:53] LABS: Anisocytosis 1+; Band Neutrophils 1 % (0-10); Eosinophils 13 % (0-10); Hypochromasia 2+; Lymphocytes 33 % (20-55); Macrocytosis 1+; Platelet Estimate Decreased; Segmented Neutrophils 40 % (50-85); Total Cells Counted 100
[2017-01-04] MEDS: SODIUM CHLORIDE 0.9% 1,000 ML IV SCH ×4 (07:14→23:06)
[2017-01-04] MEDS: SUCRALFATE 1 GM/10 ML UDCUP PO SCH ×4 (08:02→21:34)
[2017-01-04] MEDS: INSULIN LISPRO 100 UNIT/ML SUBCUT SCH ×2 (08:02→16:29)
--- NOTE | 2017-01-04 09:40 | Oncology Progress Note ---
Oncology Subjective PN Interval history: (1) adenocarcinoma of the ascending colon She has an adenocarcinoma of the ascending colon. Dr. Pratt3 believes this to be a and easily resectable tumor so we will not pursue additional scans at this point. I will be checking tumor markers in anticipation of surgery on Thursday.Her CEA level is normal at 4.0. (2) Lower gastrointestinal hemorrhage She was admitted with acute GI blood loss that has now stopped. I have discussed her case with Dr. Pratt and will follow her and assist in evaluation. Transfused 2 more units of packed red cells yesterday.Her hemoglobin is 10.1 today after transfusion. (3) Pancytopenia She gives no history of anything that might be causing marrow suppression and has not received any treatment for any prior malignancy. She has never been diagnosed as having malignancy part of this time. Some of her thrombocytopenia could correlate with some of the medications that she is taking. The same goes for her leukopenia. She remains thrombocytopenic. Her white cell count is 3300 with an absolute neutrophil count of 1300. I have had further discussions with Ms. Nash about her pancytopenia. She has had anemia and thrombocytopenia for at least 24 years. She was being seen in [facility] until she moved here 24 years ago and basically tells me that her blood counts have been low ever since that time. She has had extensive workups in the past. My feeling is that we should transfuse blood cells and blood components as appropriate and proceed with surgery on Thursday as planned. Her regular doctor is Dr. Tomi Barone I am consulting him tomorrow. Exam - Constitutional Vitals: Period Temp Pulse Resp BP Sys/Cornell Pulse Ox Last 24 Hr 97.9 F-99.2 F 80-99 16-20 101-125/53-73 95-99 Results - Labs CBC & BMP: 01/04/17 04:29 01/03/17 04:07 Quality Measures - VTE Contraindication to Pharmacological VTE Prophylaxis: High Risk of Bleeding Specialty Discharge - Follow Up or Referrals
--- NOTE | 2017-01-04 10:45 | General Surgery Progress Note ---
Assessment and Plan (1) Lower gastrointestinal hemorrhage Status: Acute Assessment and plan: She does not appear to have significant ongoing hemorrhage. We will need to check serial hematocrits. It is most likely that her bleeding source is from the colon cancer. I discussed this case with Dr. Lutz who will assess whether he feels she needs to have a colonoscopy to look for another bleeding source. 01/03: She is anemic but does not appear to be actively bleeding. This should be stabilized prior to surgery. I do not think we need acute surgical intervention to stop hemorrhage at this point. She is being evaluated by Dr. Villanueva to see if she has a bleeding tendency that will increase her risk of perioperative bleeding. 01/04: She states that she had some more rectal bleeding yesterday but it was only about half of her cup and she has had none since. Her hematocrit is now adequate. Her vital signs are stable. She is undergoing a workup by hematology and I feel that she should be ready for surgery on Thursday as we had originally planned. I do not think that we need to do any specific surgery regarding her non-massive lower GI bleeding. I suspect the bleeding is oozing from her small colon cancer. Her CEA level is normal. Current Visit: Yes (2) Colon cancer Status: Acute Assessment and plan: She has plans for an ascending colectomy and we have discussed this before. We can do this once we feel her bleeding status and coagulation status is stable. Current Visit: Yes (3) Pancytopenia Status: Acute Assessment and plan: We will get Dr. Villanueva's opinion regarding this as to whether he thinks this will create any problems with surgery. Current Visit: Yes Subjective Patient reports: Present: feels better, tolerating liquids well, blood in stool. Absent: shortness of breath, fever Exam - Constitutional Vitals: Period Temp Pulse Resp BP Sys/Cornell Pulse Ox Last 24 Hr 97.9 F-99.2 F 80-99 16-20 101-125/53-73 95-99 General appearance: no acute distress - Head Head exam: Present: normocephalic - Eye Eye exam: Absent: scleral icterus - Respiratory Respiratory exam: Absent: accessory muscle use - GI/Abdominal GI/Abdominal exam: Present: soft. Absent: distended, tenderness Results - Labs CBC & BMP: 01/04/17 04:29 01/03/17 04:07 Lab Results: I have reviewed the past 24 hour labs Quality Measures - VTE Contraindication to Pharmacological VTE Prophylaxis: High Risk of Bleeding Specialty Discharge - Follow Up or Referrals
--- NOTE | 2017-01-04 11:24 | Hospitalist Progress Note ---
Assessment and Plan - Time spent with patient Time spent with patient: Greater than 30 minutes (1) Colon cancer Status: Acute Assessment and plan: Defer to consulting services regarding this. Appreciate their assistance. Current Visit: Yes (2) Diabetes Status: Acute Assessment and plan: Continue current management. Current Visit: Yes (3) Lower gastrointestinal hemorrhage Status: Acute Assessment and plan: No recurrence of bleeding, stable. Current Visit: Yes (4) Acute blood loss anemia Status: Acute Assessment and plan: See above. Current Visit: Yes Hospitalist: Subjective Interval history: Reports a total of 2 episodes of lower bleeding on Thursday and Thursday respectively Exam - Constitutional Vitals: Period Temp Pulse Resp BP Sys/Cornell Pulse Ox Last 24 Hr 97.9 F-99.2 F 80-99 16-20 101-125/53-73 95-99 General appearance: no acute distress - Head Head exam: Present: normocephalic, atraumatic - Eye Eye exam: Present: EOMI Pupils: Present: CINDY - ENT ENT exam: Present: normal exam - Neck Neck exam: Present: normal inspection - Respiratory Respiratory exam: Present: clear to auscultation bilaterally. Absent: rhonchi, wheezes - Cardiovascular Cardiovascular exam: Present: regular rate and rhythm. Absent: gallop, rubs, systolic murmur - GI/Abdominal GI/Abdominal exam: Present: normal bowel sounds, soft. Absent: distended, firm , guarding, tenderness, rebound - Extremities Exam Extremities exam: Present: normal inspection. Absent: calf tenderness, edema Results - Labs CBC & BMP: 01/04/17 04:29 01/03/17 04:07 Lab Results: I have reviewed the past 24 hour labs Quality Measures - VTE Contraindication to Pharmacological VTE Prophylaxis: High Risk of Bleeding Specialty Discharge - Follow Up or Referrals
--- NOTE | 2017-01-04 12:46 | Gastrointestinal Progress Note ---
Assessment and Plan (1) Cancer of ascending colon Status: Acute Assessment and plan: This colon cancer has a deep ulceration in it and I have no doubt that this is likely the source the patient's blood loss. She has dropped her hematocrit from baseline of 31% down to 25% since this was discovered back on 12/05/16. Unfortunately there is little more to do then resected that segment of colon that is involved likely with right hemicolectomy. Endoscopic therapy will not work adequately for this lesion. Would suggest expedited surgery. Dr. Pratt and I have discussed getting a hematology oncology consultation in place for her thrombocytopenia/pancytopenia prior to going to surgery. I do note that the patient has had this for many years and has undergone bilateral mastectomy without significant difficulties. She did have some problems with a prior tubal ligation and required a blood transfusion at that time. 01/03/17--Hematocrit is dropped down to 23% despite transfusion yesterday. Awaiting hematology oncology workup prior to taking to surgery according to Dr. Villanueva's recommendations 01/04/17--Another 2 units of blood were transfused yesterday and now the patient' s hematocrit is up to 30%. She is noticed a decrease in the amount of blood that she is having per rectum. She says there is only small amount coming out with her bowel movements this morning. The patient is due to have colon surgery on Thursday. I am not concerned about a secondary bleeding source aside from the colon cancer, the patient is undergone both upper and lower endoscopy with ascending tumor this being the only major source. We also await pathology on the lymph nodes removed to see whether or not this patient will require chemotherapy. Current Visit: Yes (2) Lower gastrointestinal hemorrhage Status: Acute Assessment and plan: As noted above. Patient is getting blood transfusion at this time. 01/03/17-- no gross output of rectal bleeding today. Will continue to watch her hematocrit drift over time. She may need more blood today. 01/04/17--No acute changes Current Visit: Yes (3) Pancytopenia Status: Acute Assessment and plan: The patient does have a lifelong history of anemia with her most recent CBC done on 11/17/16 demonstrating a white blood cell count that was decreased to 4.1 , a hematocrit of 31.1%, platelet count of 94, and MCV of 82.5. The earliest CBC we have on file for this patient at the [facility] was from 01/24/09 which demonstrated similar results at that time a WBC of 2.8 with an improved hematocrit of 37.1% and a platelet count of 72 at that time. Aside from a recent iron deficiency anemia, the pancytopenia has been long-term. Apparently this has interfered with a previous tubal ligation but not her mastectomies in the past. 01/03/17--as per Dr. Villanueva who is seeing the patient today. 01/04/17--Dr. Villanueva is recommended transfusion of needed blood products but no further aggressive workup is required at this time. He does note that the patient has had a clinical course this spanned some 24 years and has been stable. Current Visit: Yes Gastroenterology - PN: Subj Interval history: No new questions or concerns. Exam (Progress Note) - Constitutional Vitals: Period Temp Pulse Resp BP Sys/Cornell Pulse Ox Last 24 Hr 97.9 F-99.2 F 71-99 16-20 101-131/53-73 95-99 General appearance: no acute distress - Eye Eye exam: Present: EOMI - ENT ENT exam: Present: normal exam - Respiratory Respiratory exam: Present: clear to auscultation bilaterally - Cardiovascular Cardiovascular exam: Present: regular rate and rhythm - GI/Abdominal GI/Abdominal exam: Present: normal bowel sounds, soft. Absent: distended, tenderness, rebound - Neurological Exam Neurological exam: Present: alert, oriented X3, CN II-XII intact. Absent: motor sensory deficit - Psychiatric Psychiatric exam: Present: normal affect, normal mood - Skin Skin exam: Present: warm Results - Labs CBC & BMP: 01/04/17 04:29 01/03/17 04:07 Specialty Discharge - Follow Up or Referrals
[2017-01-04] MEDS: CYANOCOBALAMIN 500 MCG TABLET PO SCH (21:34)
[2017-01-05 05:42] LABS: Basophils % 0.5 % (0.0-0.8); Eosinophils # 0.4 10*3/uL (0.0-0.87); Eosinophils % 9.9 % (0.00-10.9); Hematocrit 30.9 VOL% (35.7-47.0); Hemoglobin 10.1 GM/DL (12.0-16.0); Lymphocytes # 1.4 10*3/uL (1.4-4.0); Lymphocytes % 37.3 % (21.3-54.2); Mean Corpuscular HGB Conc 32.7 GM/DL (32-36); Mean Corpuscular Hemoglobin 28 PG (27-34); Mean Corpuscular Volume 85.1 FL (87-102); Mean Platelet Volume 11.8 FL (9.6-12.0); Monocytes # 0.5 10*3/uL (0.11-0.8); Monocytes % 12.9 % (1.7-12.7); Neutrophils # 1.5 10*3/uL (1.4-7.4); Neutrophils % 39.4 % (38.7-73.9); Red Blood Count 3.63 MC/CUMM (3.8-5.5); Red Cell Distribution Width 17.9 % (9.3-17.3); White Blood Count 3.7 T/CUMM (4-12)
[2017-01-05 05:49] LABS: Platelet Count 68 T/CUMM (130-400)
[2017-01-05 06:03] LABS: Hypochromasia 1+; Microcytosis Slight; Platelet Estimate Decreased
[2017-01-05] MEDS: SODIUM CHLORIDE 0.9% 1,000 ML IV SCH (06:03)
[2017-01-05] MEDS: SUCRALFATE 1 GM/10 ML UDCUP PO SCH ×4 (08:12→20:43)
[2017-01-05] MEDS: INSULIN LISPRO 100 UNIT/ML SUBCUT SCH ×2 (08:12→16:34)
--- NOTE | 2017-01-05 08:19 | Oncology Progress Note ---
Oncology Subjective PN Interval history: (1) adenocarcinoma of the ascending colon She has an adenocarcinoma of the ascending colon. Dr. Pratt3 believes this to be a and easily resectable tumor so we will not pursue additional scans at this point. I will be checking tumor markers in anticipation of surgery on Thursday.Her CEA level is normal at 4.0. (2) Lower gastrointestinal hemorrhage She was admitted with acute GI blood loss that has now stopped. I have discussed her case with Dr. Pratt and will follow her and assist in evaluation. Transfused 2 more units of packed red cells yesterday. (3) Leukopenia She gives no history of anything that might be causing marrow suppression and has not received any treatment for any prior malignancy. She has never been diagnosed as having malignancy part of this time. The same goes for her leukopenia.White cell count today is 3700 with an absolute neutrophil count of 1500. I am giving her a dose of Neupogen today to see if her white count will rise with it. (4)Thrombocytopenia: Some of her thrombocytopenia could correlate with some of the medications that she is taking. She remains thrombocytopenic. We will plan to transfuse platelets prior to surgery.The platelet count today is 68,000. She tells me that she has never had any platelet transfusions. (5)Anemia:The hemoglobin today is stable at 10.1. My feeling is that we should transfuse blood cells and blood components as appropriate and proceed with surgery on Thursday as planned. I have had further discussions with Ms. Nash about her pancytopenia. She has had anemia and thrombocytopenia for at least 24 years. She was being seen in [facility] until she moved here 24 years ago and basically tells me that her blood counts have been low ever since that time. She has had extensive workups in the past. Exam - Constitutional Vitals: Period Temp Pulse Resp BP Sys/Cornell Pulse Ox Last 24 Hr 98.0 F-98.9 F 71-95 16-20 116-131/65-80 93-99 Results - Labs CBC & BMP: 01/05/17 04:08 01/03/17 04:07 Quality Measures - VTE Contraindication to Pharmacological VTE Prophylaxis: High Risk of Bleeding Specialty Discharge - Follow Up or Referrals
[2017-01-05] MEDS ORDERED: FILGRASTIM-SNDZ 300 MCG/0.5 ML SYRINGE SUBCUT ONE (08:25)
[2017-01-05] MEDS ORDERED: SODIUM CHLORIDE 0.9% 250 ML IV PRN (09:03)
--- NOTE | 2017-01-05 09:07 | General Surgery Progress Note ---
Assessment and Plan (1) Lower gastrointestinal hemorrhage Status: Acute Assessment and plan: She does not appear to have significant ongoing hemorrhage. We will need to check serial hematocrits. It is most likely that her bleeding source is from the colon cancer. I discussed this case with Dr. Lutz who will assess whether he feels she needs to have a colonoscopy to look for another bleeding source. 01/03: She is anemic but does not appear to be actively bleeding. This should be stabilized prior to surgery. I do not think we need acute surgical intervention to stop hemorrhage at this point. She is being evaluated by Dr. Villanueva to see if she has a bleeding tendency that will increase her risk of perioperative bleeding. 01/04: She states that she had some more rectal bleeding yesterday but it was only about half of her cup and she has had none since. Her hematocrit is now adequate. Her vital signs are stable. She is undergoing a workup by hematology and I feel that she should be ready for surgery on Thursday as we had originally planned. I do not think that we need to do any specific surgery regarding her non-massive lower GI bleeding. I suspect the bleeding is oozing from her small colon cancer. Her CEA level is normal. 01/05: She has had only a small amount of rectal bleeding and this is really consistent with her small cancer using from her underlying bleeding disorder she relates having history of requiring a blood transfusion with her tubal ligation. For this reason I have involved hematology and we are going to transfuse a unit of single donor platelets today to see how she responds and I have also ordered platelets perioperatively. We will go ahead and plan for right colectomy for tomorrow. Current Visit: Yes (2) Colon cancer Status: Acute Assessment and plan: She has plans for an ascending colectomy and we have discussed this before. We can do this once we feel her bleeding status and coagulation status is stable. Current Visit: Yes (3) Pancytopenia Status: Acute Assessment and plan: We will get Dr. Villanueva's opinion regarding this as to whether he thinks this will create any problems with surgery. Current Visit: Yes Subjective Patient reports: Present: feels better, blood in stool. Absent: still having pain, shortness of breath, fever Exam - Constitutional Vitals: Period Temp Pulse Resp BP Sys/Cornell Pulse Ox Last 24 Hr 98.0 F-98.9 F 71-95 16-20 116-131/65-80 93-99 General appearance: no acute distress - Respiratory Respiratory exam: Absent: accessory muscle use - GI/Abdominal GI/Abdominal exam: Present: soft. Absent: distended, tenderness Results - Labs CBC & BMP: 01/05/17 04:08 01/03/17 04:07 Lab Results: I have reviewed the past 24 hour labs Quality Measures - VTE Contraindication to Pharmacological VTE Prophylaxis: High Risk of Bleeding Specialty Discharge - Follow Up or Referrals
--- NOTE | 2017-01-05 10:25 | Pulmonology Consult Note ---
History of Present Illness Chief complaint: Colon cancer. Diabetes mellitus. anemia. Plan side History of present illness: Ms. Nash is a 66 year old black female whom I been asked to see in consultation. I will follow this patient in my office and I last saw her 2015. This patient was admitted in June 2016 with a GI bleed and did not follow- up with Dr. Gilliam until November. Colonoscope found a colon cancer and she was subsequently sent to Dr. Hakeem Pratt for evaluation. She was scheduled for colectomy. She has developed a low-grade fever with tachycardia and low blood pressure. She has underlying cytopenia. She was admitted with acute GI bleed and anemia. Colon surgery is planned for tomorrow. The patient has required transfusions while she is here. The patient says her diabetes has not been under good control. Possible past history of rheumatoid arthritis. History of carpal tunnel syndrome. Allergies none. Medicines. See below Immunizations. Pneumovax was given 2006. Past history. Pancytopenia. Odf-lwwftut-dyicujunn diabetes mellitus. Past history of malaise and depression that lasted over 5 years but is come under good control for the last 10 years. Slightly thickened right mitral valve. Dr. Rory Roche follows her with yearly echocardiograms. Past history of rheumatic heart disease. History of pancytopenia for most of her life. Past history of iron deficiency. Bilateral mastectomies. Surgery was done by Dr. Hakeem Pratt. Tonsillectomy and adenoidectomy. Tubal ligation. Family history. Positive for liver cancer and prostate cancer. Her sister had leukemia. A great aunt had breast cancer. Her grandmother had diabetes and glaucoma. 5 great uncles have suddenly Social history. Patient is a college graduate. She is a teacher. She does not use alcohol or tobacco. Lab. H&H dropped to 7.4/23.7. Today posttransfusion H&H is 10.1/30.7. White blood cell count is 3700. Platelets are 68,000. Electrolytes are normal. Creatinine is 0.8 with a BUN of 18. CEA is 4.0. Liver function tests are normal. Physical exam. Vital signs. See below Psychiatric. Oriented 3. Does not appear to bring be depressed. Head eyes ears nose and throat. Pupils irises sclera conjunctiva eyelids are normal. Face is symmetrical. There are no rashes. Salivary glands are normal. Lips and tongue are normal. Nares appear to be normal. External ears are normal. Neck. Symmetrical with no masses. Full range of motion. No meningismus. Lymphatics. No submandibular cervical supraclavicular or epitrochlear adenopathy. Chest is symmetrical slightly kyphotic with normal breath sounds. No chest wall tenderness. Heart regular with a short grade 2/6 systolic ejection murmur at the left sternal border. I do not hear radiation. Breasts. Deferred Abdomen. As per Dr. Lutz. and rectal. Deferred Musculoskeletal. Mild loss normal curvature cervical thoracic and lumbar spine. Extremities. No clubbing no edema no evidence of deep venous thrombophlebitis. Arterial exam. Carotids are normal. Upper extremity pulses are normal. Posterior tibial pulses are palpable. Venous exam of the neck upper and lower extremities are normal Skin of the face and hands show no cancerous infectious lesions no other areas were examined. Neurologic. Cranial nerves are intact long track motor functions normal. Proprioception appears to be normal and gait is normal. The remainder the physical exam is negative. Impression. 1. Mcu-vvbtjqs-suigtszna diabetes mellitus 2. History of rheumatic fever and abnormal mitral valve followed by Dr. Rory Roche 3. Colon cancer with GI bleed 4. Long history of pancytopenia. 5. Allergic sinusitis in the good control 6. See past Plan. 1. I agree with present plans. 2. EKG. 3. Chest x-ray. 4. We will follow with you during the perioperative period. 5. Hemoglobin A1c 6. TSH Home Medications Medication Instructions Recorded Confirmed Type Gabapentin 100 mg PO TID 07/01/16 01/02/17 History Meloxicam [Mobic] 7.5 mg PO BID 07/01/16 01/02/17 History Metformin HCl 500 mg PO BID W/MEALS 07/01/16 01/02/17 History glipiZIDE [Glipizide] 5 mg PO BID W/MEALS 07/01/16 01/02/17 History Pantoprazole Sodium 1 tablet PO DAILY 12/22/16 01/02/17 History Aspirin EC Tab 325 mg PO DAILY 01/02/17 01/02/17 History Cyanocobalamin Tab [Vitamin B12 500 mcg PO QPM 01/02/17 01/02/17 History Tab] Allergies Allergy/AdvReac Type Severity Reaction Status Date / Time Seafood Allergy Intermediate Unknown/Unable Verified 01/04/17 08:49 to obtain Exam (Pulmonay) H&P - Constitutional Vitals: Period Temp Pulse Resp BP Sys/Cornell Pulse Ox Last 24 Hr 98.0 F-98.9 F 71-95 16-87 116-141/65-80 93-99 Medical,Surgical,& Family Hx - Medical History Neurology: No history of: Seizures HEENT: History of: Ear Problem ([place]), Eye Problem (GLASSES) Endocrine: History of: Diabetes Mellitus (NIDDM) Rheumatology: History of;: Rheumatoid Arthritis Respiratory: No history of: Respiratory Problems (FLU VAC- YES; PNEU VAC- YES.) Gastrointestinal: History of: Diverticulitis/ Diverticulosis, Gastrointestinal Bleed, Gastrointestinal Cancer Musculoskeletal: History of: Musculoskeletal Problems (CARPAL TUNNEL SYNDROME) Hematology: History of: Anemia Reproductive: History of: Breast Cancer (BENIGN CYSTS) Other: History of: Cancer (COLON CA), Eczema - Surgical History HEENT Surgeries: Surgical HX of: Tonsilectomy & Adenoidectomy Abdominal Surgeries: Surgical HX of: Colonoscopy Comment Only: Abdominal Surgery (scheduled for surgery next Thursday.) Reproductive Surgeries: Surgical HX of;: Breast Surgery (YESI MASTECTOMY), Tubal Ligation - Family History Family History: Reports;: Family Cancer (MOTHER FATHER SISTER) - Social History Smoking Status: Former smoker Frequency of Alcohol Use: None Type of Drug Use: None Results - Labs CBC & BMP: 01/05/17 04:08 01/03/17 04:07 Quality Measures - VTE Contraindication to Pharmacological VTE Prophylaxis: High Risk of Bleeding Specialty Discharge - Follow Up or Referrals
--- NOTE | 2017-01-05 10:26 | EKG Report ---
Stationary ECG Study [facility] Test Date: 01/05/2017 10:27:20 AM Pat Name: NIKOS PEREIRA Department: Room: 422 Gender: F Manager [place]: [place] : 1950 Requested by: Jared Romero Order Number: [id number] Reading MD: ANGIE SPAIN Intervals [place] Rate: 84 P: 83 [place]: 180 QRS: 33 QRSD: 92 T: 79 QT: 378 QTc: 419 Interpretive Statements SINUS RHYTHM Electronically Signed On 01-07-17 15:26:03 CDT by ANGIE SPAIN [email or web address]
[2017-01-05 11:36] LABS: Free T4 (Free Thyroxine) 0.95 NG/DL (0.76-1.46); Thyroid Stimulating Hormone 0.913 uIU/ml (0.358-3.74)
--- NOTE | 2017-01-05 13:28 | Hospitalist Progress Note ---
Assessment and Plan - Time spent with patient Time spent with patient: Greater than 30 minutes (1) Colon cancer Status: Acute Assessment and plan: Defer to consulting services regarding this. Appreciate their assistance. Current Visit: Yes (2) Diabetes Status: Acute Assessment and plan: Continue current management. Current Visit: Yes (3) Lower gastrointestinal hemorrhage Status: Acute Assessment and plan: No recurrence of bleeding, stable. Current Visit: Yes (4) Acute blood loss anemia Status: Acute Assessment and plan: See above. Current Visit: Yes Hospitalist: Subjective Interval history: No complaints or overnight events. Reports no BRBPR, melena or hematochezia. Exam - Constitutional Vitals: Period Temp Pulse Resp BP Sys/Cornell Pulse Ox Last 24 Hr 98.0 F-98.9 F 80-95 16-87 116-141/65-80 93-99 General appearance: no acute distress - Head Head exam: Present: normocephalic, atraumatic - Eye Eye exam: Present: EOMI Pupils: Present: CINDY - ENT ENT exam: Present: normal exam - Neck Neck exam: Present: normal inspection - Respiratory Respiratory exam: Present: clear to auscultation bilaterally. Absent: rhonchi, wheezes - Cardiovascular Cardiovascular exam: Present: regular rate and rhythm. Absent: gallop, rubs, systolic murmur - GI/Abdominal GI/Abdominal exam: Present: normal bowel sounds, soft. Absent: distended, firm , guarding, tenderness, rebound - Extremities Exam Extremities exam: Present: normal inspection. Absent: calf tenderness, edema Results - Labs CBC & BMP: 01/05/17 04:08 01/03/17 04:07 Lab Results: I have reviewed the past 24 hour labs Quality Measures - VTE Contraindication to Pharmacological VTE Prophylaxis: High Risk of Bleeding Specialty Discharge - Follow Up or Referrals
--- NOTE | 2017-01-05 14:27 | Gastrointestinal Progress Note ---
Assessment and Plan (1) Cancer of ascending colon Status: Acute Assessment and plan: This colon cancer has a deep ulceration in it and I have no doubt that this is likely the source the patient's blood loss. She has dropped her hematocrit from baseline of 31% down to 25% since this was discovered back on 12/05/16. Unfortunately there is little more to do then resected that segment of colon that is involved likely with right hemicolectomy. Endoscopic therapy will not work adequately for this lesion. Would suggest expedited surgery. Dr. Pratt and I have discussed getting a hematology oncology consultation in place for her thrombocytopenia/pancytopenia prior to going to surgery. I do note that the patient has had this for many years and has undergone bilateral mastectomy without significant difficulties. She did have some problems with a prior tubal ligation and required a blood transfusion at that time. 01/03/17--Hematocrit is dropped down to 23% despite transfusion yesterday. Awaiting hematology oncology workup prior to taking to surgery according to Dr. Villanueva's recommendations 01/04/17--Another 2 units of blood were transfused yesterday and now the patient' s hematocrit is up to 30%. She is noticed a decrease in the amount of blood that she is having per rectum. She says there is only small amount coming out with her bowel movements this morning. The patient is due to have colon surgery on Thursday. I am not concerned about a secondary bleeding source aside from the colon cancer, the patient is undergone both upper and lower endoscopy with ascending tumor this being the only major source. We also await pathology on the lymph nodes removed to see whether or not this patient will require chemotherapy. 01/05/17--Patient appears to be doing well at this point. She is due to get a platelet transfusion tonight and Zarxio to stimulate her white blood cell count and potentially fight off infection. No colonic flush will be needed as this is a right hemicolectomy, with reduce risk of soilage as per Dr. Pratt. Current Visit: Yes (2) Lower gastrointestinal hemorrhage Status: Acute Assessment and plan: As noted above. Patient is getting blood transfusion at this time. 01/03/17-- no gross output of rectal bleeding today. Will continue to watch her hematocrit drift over time. She may need more blood today. 01/04/17--No acute changes 01/05/17--No further blood loss noted. The patient is doing well at this point. Current Visit: Yes (3) Pancytopenia Status: Acute Assessment and plan: The patient does have a lifelong history of anemia with her most recent CBC done on 11/17/16 demonstrating a white blood cell count that was decreased to 4.1 , a hematocrit of 31.1%, platelet count of 94, and MCV of 82.5. The earliest CBC we have on file for this patient at the [facility] [place] was from 01/24/09 which demonstrated similar results at that time a WBC of 2.8 with an improved hematocrit of 37.1% and a platelet count of 72 at that time. Aside from a recent iron deficiency anemia, the pancytopenia has been long-term. Apparently this has interfered with a previous tubal ligation but not her mastectomies in the past. 01/03/17--as per Dr. Villanueva who is seeing the patient today. 01/04/17--Dr. Villanueva is recommended transfusion of needed blood products but no further aggressive workup is required at this time. He does note that the patient has had a clinical course this spanned some 24 years and has been stable. 01/05/17--Observation with platelet transfusion and Zarxio injection. Current Visit: Yes Gastroenterology - PN: Subj Interval history: Angy is doing fine, she is going to get her platelets later on this evening time and undergo her surgery tomorrow. I suspect her pathology will be available later on this week. I have called up Dr. Pratt and he does not typically do a bowel prep for right hemicolectomy as they tend to have very little soilage. Exam (Progress Note) - Constitutional Vitals: Period Temp Pulse Resp BP Sys/Cornell Pulse Ox Last 24 Hr 98.0 F-98.9 F 80-95 16-87 116-141/65-80 93-99 General appearance: no acute distress - Head Head exam: Present: normocephalic - Neck Neck exam: Present: normal inspection - Respiratory Respiratory exam: Present: clear to auscultation bilaterally. Absent: rales, rhonchi, stridor - Cardiovascular Cardiovascular exam: Present: regular rate and rhythm - GI/Abdominal GI/Abdominal exam: Present: normal bowel sounds, soft. Absent: distended, guarding, tenderness, rebound - Neurological Exam Neurological exam: Present: alert, oriented X3 - Psychiatric Psychiatric exam: Present: normal affect, normal mood - Skin Skin exam: Present: warm Results - Labs CBC & BMP: 01/05/17 04:08 01/03/17 04:07 Specialty Discharge - Follow Up or Referrals
--- NOTE | 2017-01-05 14:27 | XRay Report ---
XR chest 2V Indication: Preop respiratory evaluation. Chest 2 views: Comparison 12/22/2016. Heart size remains upper limits of normal with a normal mediastinal contour. Lungs are clear and minimally hyperinflated. Pleural spaces are clear. Impression: No acute cardiopulmonary disease. PROCEDURE INTERPRETED AT [facility] DEPARTMENT OF RADIOLOGY Final Report Signed by: Geoff Baker M.D.
[2017-01-05] MEDS ORDERED: ACETAMINOPHEN 500 MG TABLET ONE (17:48)
[2017-01-05] MEDS ORDERED: diphenhydrAMINE 50 MG/1 ML VIAL ONE (17:49)
[2017-01-05] MEDS ORDERED: DEXAMETHASONE 4 MG/1 ML VIAL IV ONE (18:00)
[2017-01-05] MEDS ORDERED: ACETAMINOPHEN 500 MG TABLET PO ONE (18:10)
[2017-01-05] MEDS ORDERED: diphenhydrAMINE 50 MG/1 ML VIAL IV ONE (18:11)
[2017-01-05] MEDS: CYANOCOBALAMIN 500 MCG TABLET PO SCH (20:43)
[2017-01-06] MEDS ORDERED: DEXAMETHASONE 10 MG/1 ML VIAL IV ONE (06:00)
[2017-01-06] MEDS ORDERED: diphenhydrAMINE 50 MG/1 ML VIAL IV ONE (06:00)
[2017-01-06] MEDS ORDERED: ACETAMINOPHEN 500 MG TABLET PO ONE (06:00)
[2017-01-06 06:14] LABS: Basophils % 0.1 % (0.0-0.8); Eosinophils % 0.1 % (0.00-10.9); Immature Granulocytes % 8.3 %; Immature Granulocytes Absolute 1.11 #; Lymphocytes # 0.5 10*3/uL (1.4-4.0); Lymphocytes % 3.6 % (21.3-54.2); Mean Corpuscular HGB Conc 32.4 GM/DL (32-36); Mean Corpuscular Hemoglobin 28 PG (27-34); Mean Corpuscular Volume 86.3 FL (87-102); Mean Platelet Volume 11.9 FL (9.6-12.0); Monocytes # 0.7 10*3/uL (0.11-0.8); Monocytes % 5.5 % (1.7-12.7); Neutrophils # 11.1 10*3/uL (1.4-7.4); Neutrophils % 82.4 % (38.7-73.9); Red Blood Count 3.94 MC/CUMM (3.8-5.5); Red Cell Distribution Width 18.3 % (9.3-17.3)
[2017-01-06 06:16] LABS: Platelet Count 117 T/CUMM (130-400); White Blood Count 13.4 T/CUMM (4-12)
[2017-01-06 06:36] LABS: Band Neutrophils 28 % (0-10); Eosinophils 1 % (0-10); Hypochromasia Slight; Lymphocytes 7 % (20-55); Microcytosis 1+; Segmented Neutrophils 62 % (50-85); Total Cells Counted 100
[2017-01-06 06:37] LABS: Platelet Estimate Decreased; Polychromasia Slight
[2017-01-06 06:44] LABS: Albumin 3.2 G/DL (3.4-5.0); Bilirubin,Total 0.4 MG/DL (0.2-1.0); Calcium 9.1 MG/DL (8.5-10.1); Osmolality,Calculated 301.8 MOS/KG (273-304); Potassium 4.2 MMOL/L (3.5-5.1); Total Protein 6.4 G/DL (6.4-8.3)
--- NOTE | 2017-01-06 07:15 | Oncology Progress Note ---
Oncology Subjective PN Interval history: Ms. Nash is going to surgery today. She had fever and chills with her platelet transfusion last night. This suggests an autoimmune component to her thrombocytopenia. This morning her platelet count is 117,000 with a hemoglobin 11.0 and a white cell count of 13,400. This platelet count should be adequate for surgery. Exam - Constitutional Vitals: Period Temp Pulse Resp BP Sys/Cornell Pulse Ox Last 24 Hr 98.1 F-99.2 F 80-129 16-87 113-148/55-77 95-99 Results - Labs CBC & BMP: 01/06/17 04:33 01/06/17 04:33 Quality Measures - VTE Contraindication to Pharmacological VTE Prophylaxis: High Risk of Bleeding Specialty Discharge - Follow Up or Referrals
[2017-01-06] MEDS: SUCRALFATE 1 GM/10 ML UDCUP PO SCH ×4 (07:27→21:25)
[2017-01-06] MEDS: INSULIN LISPRO 100 UNIT/ML SUBCUT SCH ×2 (07:27→16:16)
[2017-01-06 08:15] LABS: Apearance,Urine CLEAR (Clear); Bilirubin,Urine Negative (Negative); Blood, Urine Negative (Negative); Glucose,Urine (UA) >=500 mg/dL (Negative); Ketones,Urine Negative (Negative); Nitrite,Urine Negative (Negative); Protein,Urine Negative; RBC,Urine 1 /HPF (0-4); Urine Color Straw (Yellow); Urine Specific Gravity 1.014 (1.001-1.035); Urine Urobilinogen < 2.0 EU/DL (0.2-1.0)
--- NOTE | 2017-01-06 08:41 | Gastrointestinal Progress Note ---
Assessment and Plan (1) Cancer of ascending colon Status: Acute Assessment and plan: This colon cancer has a deep ulceration in it and I have no doubt that this is likely the source the patient's blood loss. She has dropped her hematocrit from baseline of 31% down to 25% since this was discovered back on 12/05/16. Unfortunately there is little more to do then resected that segment of colon that is involved likely with right hemicolectomy. Endoscopic therapy will not work adequately for this lesion. Would suggest expedited surgery. Dr. Pratt and I have discussed getting a hematology oncology consultation in place for her thrombocytopenia/pancytopenia prior to going to surgery. I do note that the patient has had this for many years and has undergone bilateral mastectomy without significant difficulties. She did have some problems with a prior tubal ligation and required a blood transfusion at that time. 01/03/17--Hematocrit is dropped down to 23% despite transfusion yesterday. Awaiting hematology oncology workup prior to taking to surgery according to Dr. Villanueva's recommendations 01/04/17--Another 2 units of blood were transfused yesterday and now the patient' s hematocrit is up to 30%. She is noticed a decrease in the amount of blood that she is having per rectum. She says there is only small amount coming out with her bowel movements this morning. The patient is due to have colon surgery on Thursday. I am not concerned about a secondary bleeding source aside from the colon cancer, the patient is undergone both upper and lower endoscopy with ascending tumor this being the only major source. We also await pathology on the lymph nodes removed to see whether or not this patient will require chemotherapy. 01/05/17--Patient appears to be doing well at this point. She is due to get a platelet transfusion tonight and Zarxio to stimulate her white blood cell count and potentially fight off infection. No colonic flush will be needed as this is a right hemicolectomy, with reduce risk of soilage as per Dr. Pratt. 01/06/17--In surgery at this time. She had a good response to both the platelet transfusion and Zarxio. Current Visit: Yes (2) Lower gastrointestinal hemorrhage Status: Acute Assessment and plan: As noted above. Patient is getting blood transfusion at this time. 01/03/17-- no gross output of rectal bleeding today. Will continue to watch her hematocrit drift over time. She may need more blood today. 01/04/17--No acute changes 01/05/17--No further blood loss noted. The patient is doing well at this point. 01/06/17--Hematocrit is improved as well to 34% today. Current Visit: Yes (3) Pancytopenia Status: Acute Assessment and plan: The patient does have a lifelong history of anemia with her most recent CBC done on 11/17/16 demonstrating a white blood cell count that was decreased to 4.1 , a hematocrit of 31.1%, platelet count of 94, and MCV of 82.5. The earliest CBC we have on file for this patient at the [facility] [place] was from 01/24/09 which demonstrated similar results at that time a WBC of 2.8 with an improved hematocrit of 37.1% and a platelet count of 72 at that time. Aside from a recent iron deficiency anemia, the pancytopenia has been long-term. Apparently this has interfered with a previous tubal ligation but not her mastectomies in the past. 01/03/17--as per Dr. Villanueva who is seeing the patient today. 01/04/17--Dr. Villanueva is recommended transfusion of needed blood products but no further aggressive workup is required at this time. He does note that the patient has had a clinical course this spanned some 24 years and has been stable. 01/05/17--Observation with platelet transfusion and Zarxio injection. 01/06/17--Improved today post infusions yesterday. Current Visit: Yes Gastroenterology - PN: Subj Interval history: Patient is in surgery at the time as note she is not available for examination but by report had some fevers and chills with her platelet transfusion and start of white blood cell count trophic agent. Exam (Progress Note) - Constitutional Vitals: Period Temp Pulse Resp BP Sys/Cornell Pulse Ox Last 24 Hr 98.1 F-99.2 F 80-129 16-22 113-148/55-77 97-99 Exam: Patient surgery at this time, vitals appear to be normal Results - Labs CBC & BMP: 01/06/17 04:33 01/06/17 04:33 Specialty Discharge - Follow Up or Referrals
[2017-01-06] MEDS ORDERED: GLYCOPYRROLATE 0.4 MG/2 ML VIAL ONE (09:00)
[2017-01-06] MEDS ORDERED: LIDOCAINE 1% 5 ML VIAL ONE (09:00)
[2017-01-06] MEDS ORDERED: NEOSTIGMINE 10 MG/10 ML VIAL ONE (09:00)
[2017-01-06] MEDS ORDERED: ROCURONIUM 100 MG/10 ML VIAL IV ONE (09:00)
[2017-01-06] MEDS ORDERED: PROPOFOL 200 MG/20 ML VIAL IV ONE (09:00)
[2017-01-06] MEDS ORDERED: TISSUE ADHESIVE 1 EACH APPLICATOR TOP ONE (09:08)
--- NOTE | 2017-01-06 09:14 | Pulmonology Progress Note ---
Pulmonary - PN: Subj Interval history: Jared Romero, ANP-BC, GNP-BC, acting as scribe for Dr. Aníbal Barone Ms. Nash is a 66-year-old -[place]e female who we saw in initial pulmonary consultation on 01/05/2017. At that time, our impressions were: 1. Udi-gtexnyd-fcstjosyq diabetes mellitus 2. History of rheumatic fever and abnormal mitral valve followed by Dr. Rory Roche 3. Colon cancer with GI bleed 4. Long history of pancytopenia. 5. Allergic sinusitis in the good control 6. See past history 01/06/2017. The patient is out of the room and has been taken to surgery for colectomy as per Dr. Pratt, III. Chest x-ray yesterday showed no acute process. EKG shows an incomplete right bundle branch block. Labs showed a white count of 13,400 with 82.4% segs; H&H 11.0/34.0; platelet count has improved to 117,000 with platelet transfusion; creatinine 1.00, BUN 21, electrolytes are normal; liver function tests within normal limits; calcium 9.1 , albumin 3.2, total protein 6.4; for TSH and free T4 normal at 0.913 and 0.95 respectively; urinalysis showed no evidence of infection Exam (Progress Note) - Constitutional Vitals: Period Temp Pulse Resp BP Sys/Cornell Pulse Ox Last 24 Hr 98.1 F-99.2 F 80-129 16-22 113-148/55-77 97-99 Results - Labs CBC & BMP: 01/06/17 04:33 01/06/17 04:33 Specialty Discharge - Follow Up or Referrals
--- NOTE | 2017-01-06 09:20 | Operative Note ---
Date of procedure: 01/06/17 Pre-op diagnosis: Right colon cancer with lower GI bleeding Post-op diagnosis: same Procedure: Laparoscopic right hemicolectomy Findings and technique: After informed consent was obtained patient was brought the operating room placed in supine position. After successful induction of general anesthesia the patient's abdomen was prepped and draped in usual sterile fashion. Local anesthesia was infiltrated the umbilicus where a small incision was made on GelPort inserted. Pneumoperitoneum was established and the camera inserted. Exploration of the abdomen revealed the blue stained tumor site in the mid ascending colon and no other pathology was noted. Patient 's liver had no evidence of metastasis there were no evidence of peritoneal metastasis. A left lower quadrant 5 mm port was placed as well as a port in the right upper quadrant and I then moved the camera to the right upper quadrant. The LigaSure dissector was then used to incise the peritoneal reflection lateral to the ascending colon and the colon was mobilized medially mobilizing terminal ileum appendix a sending colon and hepatic flexure. The right ureter was identified and avoided. I then delivered the colon extracorporeally and divided the terminal ileum with a COCO stapling device and the proximal transverse colon at the middle colic vessels with a GI stapling device the mesentery was resected taking a generous mesenteric dissection and I could actually see visible lymph nodes from the previous Pam ink injection to been used for localization. I followed these lymph nodes down to the origin of the right colic artery where it was clamped and ligated. Prior to dividing this I then checked perfusion of the remaining bowel with the pinpoint fluorescence device and this showed good perfusion of the small bowel and the terminal ileum. I took just a little extra ileum so that I could be sure that this was well-perfused at the anastomosis. The specimen was sent for pathology and margins were negative. A stapled anastomosis was performed extracorporeally with a GI stapling device and a TA stapling device to close openings in the ends of the bowel. Mesenteric defect was closed interrupted silk suture. The bowel was returned to its normal position in the peritoneal cavity irrigated and the irrigation suctioned dry and good hemostasis noted. I coated the anastomosis with Tisseel tissue sealant. The midline fascia was then closed with a running 0 Monocryl suture and the skin incisions closed with 4-0 Vicryl subcuticular suture and tissue sealant. She appeared to tolerate the procedure well and she did receive perioperative IV antibiotics Anesthesia: GETA, local Surgeon / Physician: Tomi Pratt III. Estimated blood loss: other (50 mL) Specimens: none sent (Right colon and mesenteric lymph nodes) Condition: stable Disposition: PACU Results - Labs CBC & BMP: 01/06/17 04:33 01/06/17 04:33 Discharge Plan - Discharge Medications No Action Gabapentin 100 mg PO TID Cyanocobalamin Tab [Vitamin B12 Tab] 500 mcg PO QPM Metformin HCl 500 mg PO BID W/MEALS glipiZIDE [Glipizide] 5 mg PO BID W/MEALS Meloxicam [Mobic] 7.5 mg PO BID Pantoprazole Sodium 1 tablet PO DAILY Aspirin EC Tab 325 mg PO DAILY - Follow Up or Referral - Forms/Instructions Instructions: Rectal Bleeding (ED)
[2017-01-06] MEDS ORDERED: MORPHINE 2 MG/1 ML SYRINGE IV PRN (09:23)
[2017-01-06 10:05] LABS: Hematocrit 34.8 VOL% (35.7-47.0); Hemoglobin 11.2 GM/DL (12.0-16.0)
[2017-01-06] MEDS: DEXTROSE 5% LACTATED RINGERS 1,000 ML IV SCH ×2 (10:59→18:53)
[2017-01-06] MEDS: SODIUM CHLORIDE 0.9% 1,000 ML IV SCH (11:00)
--- NOTE | 2017-01-06 13:30 | Hospitalist Progress Note ---
Assessment and Plan - Time spent with patient Time spent with patient: Greater than 30 minutes (1) Colon cancer Status: Acute Assessment and plan: Status post laparoscopic right hemicolectomy. Current Visit: Yes (2) Diabetes Status: Acute Assessment and plan: Hemoglobin A1c is 7.4. Currently on dextrose infusion, once the patient begins eating will begin assisting with management of diabetes. Current Visit: Yes (3) Lower gastrointestinal hemorrhage Status: Acute Assessment and plan: No recurrence of bleeding, stable. Current Visit: Yes (4) Acute blood loss anemia Status: Acute Assessment and plan: See above. Current Visit: Yes Hospitalist: Subjective Interval history: Patient has returned from a laparoscopic right hemicolectomy this morning. She is lethargic and sleepy. Exam - Constitutional Vitals: Period Temp Pulse Resp BP Sys/Cornell Pulse Ox Last 24 Hr 97 F-99.2 F 61-129 16-22 113-164/55-92 93-100 General appearance: no acute distress - Head Head exam: Present: normocephalic, atraumatic - Eye Eye exam: Present: EOMI Pupils: Present: CINDY - ENT ENT exam: Present: normal exam - Neck Neck exam: Present: normal inspection - Respiratory Respiratory exam: Present: clear to auscultation bilaterally. Absent: rhonchi, wheezes - Cardiovascular Cardiovascular exam: Present: regular rate and rhythm. Absent: gallop, rubs, systolic murmur - GI/Abdominal GI/Abdominal exam: Present: normal bowel sounds, soft, other (Small incisions in the abdomen with an surgical dressing). Absent: distended, firm, guarding, tenderness, rebound - Extremities Exam Extremities exam: Present: normal inspection. Absent: calf tenderness, edema Results - Labs CBC & BMP: 01/06/17 09:58 01/06/17 04:33 Lab Results: I have reviewed the past 24 hour labs Quality Measures - VTE Contraindication to Pharmacological VTE Prophylaxis: High Risk of Bleeding Specialty Discharge - Follow Up or Referrals
--- NOTE | 2017-01-06 13:47 | Anesthesia Post-Op ---
Anesthesia Post OP - Post Ansesthetic Evaluation Patient seen in post op: Yes Resp: within normal limits CV: within normal limits Mental: within normal limits Temp: within normal limits [id number]: within normal limits Nausea and Vomiting: within normal limits Pain: within normal limits
[2017-01-06 18:11] LABS: Hematocrit 35.3 VOL% (35.7-47.0); Hemoglobin 10.9 GM/DL (12.0-16.0)
[2017-01-06] MEDS: ACETAMINOPHEN 325 MG TABLET PO PRN (21:24)
[2017-01-06] MEDS: CYANOCOBALAMIN 500 MCG TABLET PO SCH (21:24)
[2017-01-07] MEDS: DEXTROSE 5% LACTATED RINGERS 1,000 ML IV SCH (01:53)
[2017-01-07 02:04] LABS: Hematocrit 25.6 VOL% (35.7-47.0); Hemoglobin 8.4 GM/DL (12.0-16.0); Immature Granulocytes % 1.4 %; Immature Granulocytes Absolute 0.13 #; Lymphocytes # 0.5 10*3/uL (1.4-4.0); Lymphocytes % 4.7 % (21.3-54.2); Mean Corpuscular HGB Conc 32.8 GM/DL (32-36); Mean Corpuscular Hemoglobin 29 PG (27-34); Mean Corpuscular Volume 87.7 FL (87-102); Mean Platelet Volume 10.6 FL (9.6-12.0); Monocytes % 10.7 % (1.7-12.7); Neutrophils # 7.9 10*3/uL (1.4-7.4); Neutrophils % 83.2 % (38.7-73.9); Platelet Count 178 T/CUMM (130-400); Red Blood Count 2.92 MC/CUMM (3.8-5.5); Red Cell Distribution Width 18.5 % (9.3-17.3); White Blood Count 9.5 T/CUMM (4-12)
[2017-01-07 02:33] LABS: Band Neutrophils 8 % (0-10); Lymphocytes 5 % (20-55); Segmented Neutrophils 82 % (50-85); Total Cells Counted 100
[2017-01-07 02:35] LABS: Anisocytosis Slight; Hypochromasia Slight; Microcytosis Slight
[2017-01-07 02:36] LABS: Polychromasia Few
[2017-01-07 02:37] LABS: Platelet Estimate Normal
[2017-01-07 02:40] LABS: Alanine Aminotransferase 34 U/L (13-56); Albumin 2.7 G/DL (3.4-5.0); Alkaline Phosphatase 49 U/L (45-117); Aspartate Amino Transferase 23 U/L (0-37); Bilirubin,Total < 0.39 MG/DL (0.2-1.0); Blood Urea Nitrogen 19 MG/DL (7-18); Glucose 376 MG/DL (74-106); Osmolality,Calculated 302.8 MOS/KG (273-304); Potassium 4.1 MMOL/L (3.5-5.1); Sodium 144 MMOL/L (136-145); Total Protein 5.4 G/DL (6.4-8.3)
--- NOTE | 2017-01-07 06:51 | Gastrointestinal Progress Note ---
Assessment and Plan (1) Cancer of ascending colon Status: Acute Assessment and plan: This colon cancer has a deep ulceration in it and I have no doubt that this is likely the source the patient's blood loss. She has dropped her hematocrit from baseline of 31% down to 25% since this was discovered back on 12/05/16. Unfortunately there is little more to do then resected that segment of colon that is involved likely with right hemicolectomy. Endoscopic therapy will not work adequately for this lesion. Would suggest expedited surgery. Dr. Pratt and I have discussed getting a hematology oncology consultation in place for her thrombocytopenia/pancytopenia prior to going to surgery. I do note that the patient has had this for many years and has undergone bilateral mastectomy without significant difficulties. She did have some problems with a prior tubal ligation and required a blood transfusion at that time. 01/03/17--Hematocrit is dropped down to 23% despite transfusion yesterday. Awaiting hematology oncology workup prior to taking to surgery according to Dr. Villanueva's recommendations 01/04/17--Another 2 units of blood were transfused yesterday and now the patient' s hematocrit is up to 30%. She is noticed a decrease in the amount of blood that she is having per rectum. She says there is only small amount coming out with her bowel movements this morning. The patient is due to have colon surgery on Thursday. I am not concerned about a secondary bleeding source aside from the colon cancer, the patient is undergone both upper and lower endoscopy with ascending tumor this being the only major source. We also await pathology on the lymph nodes removed to see whether or not this patient will require chemotherapy. 01/05/17--Patient appears to be doing well at this point. She is due to get a platelet transfusion tonight and Zarxio to stimulate her white blood cell count and potentially fight off infection. No colonic flush will be needed as this is a right hemicolectomy, with reduce risk of soilage as per Dr. Pratt. 01/06/17--In surgery at this time. She had a good response to both the platelet transfusion and Zarxio. 01/07/17--Syncopal event last night however the patient is doing well post surgery. Current Visit: Yes (2) Lower gastrointestinal hemorrhage Status: Acute Assessment and plan: As noted above. Patient is getting blood transfusion at this time. 01/03/17-- no gross output of rectal bleeding today. Will continue to watch her hematocrit drift over time. She may need more blood today. 01/04/17--No acute changes 01/05/17--No further blood loss noted. The patient is doing well at this point. 01/06/17-- Hematocrit is improved as well to 34% today. 01/07/17-- The patient's hematocrit is dropped from 35.3% down to 25.6% this morning post surgery, on the right side the platelet levels up to 178 which is still in the normal limits as is the white blood cell count 9.5. Transfusion if surgery feels this will be helpful however will probably watch and see if she drops further. The above is after some IV fluids. Current Visit: Yes (3) Pancytopenia Status: Acute Assessment and plan: The patient does have a lifelong history of anemia with her most recent CBC done on 11/17/16 demonstrating a white blood cell count that was decreased to 4.1 , a hematocrit of 31.1%, platelet count of 94, and MCV of 82.5. The earliest CBC we have on file for this patient at the [facility] [place] was from 01/24/09 which demonstrated similar results at that time a WBC of 2.8 with an improved hematocrit of 37.1% and a platelet count of 72 at that time. Aside from a recent iron deficiency anemia, the pancytopenia has been long-term. Apparently this has interfered with a previous tubal ligation but not her mastectomies in the past. 01/03/17--as per Dr. Villanueva who is seeing the patient today. 01/04/17--Dr. Villanueva is recommended transfusion of needed blood products but no further aggressive workup is required at this time. He does note that the patient has had a clinical course this spanned some 24 years and has been stable. 01/05/17--Observation with platelet transfusion and Zarxio injection. 01/06/17--Improved today post infusions yesterday. 01/07/17--Improved as noted above. Current Visit: Yes Gastroenterology - PN: Subj Interval history: The patient had a syncopal episode trying to get up to the commode last night, blacked out for a couple of seconds, has been bad since that time and is feeling adequate considering surgery she has been through. Her pain is approximately 8 out of 10 in intensity and she does have bowel sounds this morning but has not had any flatus. Op report reviewed, sounds like this went well. Exam (Progress Note) - Constitutional Vitals: Period Temp Pulse Resp BP Sys/Cornell Pulse Ox Last 24 Hr 97 F-99.7 F 61-101 16-20 119-164/56-92 93-100 General appearance: no acute distress - Head Head exam: Present: normocephalic - Eye Eye exam: Present: EOMI Pupils: Present: CINDY - Respiratory Respiratory exam: Present: clear to auscultation bilaterally. Absent: rhonchi, stridor, wheezes - Cardiovascular Cardiovascular exam: Present: regular rate and rhythm - GI/Abdominal GI/Abdominal exam: Present: hypoactive bowel sounds, tenderness (Right greater than left lower abdomen tenderness), soft. Absent: distended, rebound - Neurological Exam Neurological exam: Present: alert, oriented X3 - Psychiatric Psychiatric exam: Present: normal affect, normal mood Results - Labs CBC & BMP: 01/07/17 01:45 01/07/17 01:45 Specialty Discharge - Follow Up or Referrals
[2017-01-07] MEDS: SUCRALFATE 1 GM/10 ML UDCUP PO SCH ×4 (07:58→20:55)
--- NOTE | 2017-01-07 08:45 | Oncology Progress Note ---
Oncology Subjective PN Interval history: Case discussed with Dr. Pratt. It appears this is early stage colon cancer, possibly without even lymph node involvement but will await the pathology report. Her hemoglobin is down to 8.4. I will order blood if it drops below 8. Her platelet count is 178,000. This may be due to platelet transfusion but it also may be due to the fact that she received corticosteroids. 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 We will be monitoring CBCs closely and on a daily basis. Exam - Constitutional Vitals: Period Temp Pulse Resp BP Sys/Cornell Pulse Ox Last 24 Hr 97 F-99.7 F 61-101 16-20 119-164/56-92 93-100 Results - Labs CBC & BMP: 01/07/17 01:45 01/07/17 01:45 Quality Measures - VTE Contraindication to Pharmacological VTE Prophylaxis: High Risk of Bleeding Specialty Discharge - Follow Up or Referrals
--- NOTE | 2017-01-07 08:52 | Event Note ---
She feels well. Her vital signs are stable. Her abdomen appears benign. She has adequate urine output. She is anemic but I do not think this is active bleeding. She probably has a combination of surgical blood loss and hydration. We will follow her hematocrit. We will get her up out of bed more today.
[2017-01-07] MEDS: INSULIN LISPRO 100 UNIT/ML SUBCUT SCH ×2 (09:02→16:38)
--- NOTE | 2017-01-07 10:08 | Pulmonology Progress Note ---
Pulmonary - PN: Subj Interval history: Ms. Nash is a 66-year-old -[place] female who we saw in initial pulmonary consultation on 01/05/2017. At that time, our impressions were: 1. Vcs-hqswhxo-hvcrzlecl diabetes mellitus 2. History of rheumatic fever and abnormal mitral valve followed by Dr. Rory Roche 3. Colon cancer with GI bleed 4. Long history of pancytopenia. 5. Allergic sinusitis in the good control 6. See past history 01/06/2017. The patient is out of the room and has been taken to surgery for colectomy as per Dr. Pratt, III. Chest x-ray yesterday showed no acute process. EKG shows an incomplete right bundle branch block. Labs showed a white count of 13,400 with 82.4% segs; H&H 11.0/34.0; platelet count has improved to 117,000 with platelet transfusion; creatinine 1.00, BUN 21, electrolytes are normal; liver function tests within normal limits; calcium 9.1 , albumin 3.2, total protein 6.4; for TSH and free T4 normal at 0.913 and 0.95 respectively; urinalysis showed no evidence of infection 01/07/2017. On 01/06/2017 patient had a laparoscopic right hemicolectomy. Path is pending. She complains of being sore this morning. Otherwise she has done very well. H&H is dropped to 8.4/25.8. White count is 9500 with 83 segs and 5 lymphs. Platelets are 178,000. Electrolytes are normal. Creatinine is 1.1 with a BUN of 19. Liver function tests are normal. Total protein and albumin are low at 5.4 and 2.7 respectively. Urinalysis is normal.Chest x-ray done 01/05 was normal. Physical exam. Vital signs. See below Psychiatric oriented 3 Neurologic. Cranial nerves are intact long track motor functions intact Face. Symmetrical. No swelling of the lips or tongue. Neck. Symmetrical with no meningismus. Lymphatics no submandibular cervical supraclavicular or epitrochlear adenopathy. Chest. Clear. Heart. No gallop Abdomen. Postsurgical Extremities. Nothing to suggest deep venous thrombophlebitis The remainder the physical exam is noncontributory. Plan. 1. Continue present regimen. 2. Watch H&H. Patient might require blood transfusion. Exam (Progress Note) - Constitutional Vitals: Period Temp Pulse Resp BP Sys/Cornell Pulse Ox Last 24 Hr 97 F-99.7 F 61-101 16-20 119-164/56-86 93-100 Results - Labs CBC & BMP: 01/07/17 09:23 01/07/17 01:45 Specialty Discharge - Follow Up or Referrals
[2017-01-07] MEDS ORDERED: LACTATED RINGERS 1,000 ML IV SCH (12:00)
--- NOTE | 2017-01-07 12:19 | Hospitalist Progress Note ---
Assessment and Plan - Time spent with patient Time spent with patient: Greater than 30 minutes (1) Colon cancer Status: Acute Assessment and plan: Status post laparoscopic right hemicolectomy. Defer to oncology. Appreciate their assistance. Current Visit: Yes (2) Diabetes Status: Acute Assessment and plan: Hemoglobin A1c is 7.4. On clear diet. Once the patient begins eating will start oral medications. Current Visit: Yes (3) Lower gastrointestinal hemorrhage Status: Acute Assessment and plan: No recurrence of bleeding, stable. Current Visit: Yes (4) Acute blood loss anemia Status: Acute Assessment and plan: Hemoglobin stable. Current Visit: Yes Hospitalist: Subjective Interval history: She is drinking fluids well tolerating this. She has no complaints this morning. She is in good spirits. Yesterday she had a right hemicolectomy laparoscopically done. She is hemodynamically stable. Exam - Constitutional Vitals: Period Temp Pulse Resp BP Sys/Cornell Pulse Ox Last 24 Hr 97.8 F-99.7 F 72-101 16-20 119-159/56-77 99-100 General appearance: no acute distress - Head Head exam: Present: normocephalic, atraumatic - Eye Eye exam: Present: EOMI Pupils: Present: CINDY - ENT ENT exam: Present: normal exam - Neck Neck exam: Present: normal inspection - Respiratory Respiratory exam: Present: clear to auscultation bilaterally. Absent: rhonchi, wheezes - Cardiovascular Cardiovascular exam: Present: regular rate and rhythm. Absent: gallop, rubs, systolic murmur - GI/Abdominal GI/Abdominal exam: Present: normal bowel sounds, soft, other (Laparoscopic surgical incisions with an surgical dressing.). Absent: distended, firm, guarding, tenderness, rebound - Extremities Exam Extremities exam: Present: normal inspection. Absent: calf tenderness, edema Results - Labs CBC & BMP: 01/07/17 09:23 01/07/17 01:45 Lab Results: I have reviewed the past 24 hour labs Quality Measures - VTE Contraindication to Pharmacological VTE Prophylaxis: High Risk of Bleeding Specialty Discharge - Follow Up or Referrals
[2017-01-07] MEDS: CYANOCOBALAMIN 500 MCG TABLET PO SCH (20:55)
[2017-01-08 05:53] LABS: Albumin 2.9 G/DL (3.4-5.0); Bilirubin,Total 0.7 MG/DL (0.2-1.0); Calcium 8.9 MG/DL (8.5-10.1); Osmolality,Calculated 295.8 MOS/KG (273-304); Potassium 3.8 MMOL/L (3.5-5.1); Total Protein 5.8 G/DL (6.4-8.3)
--- NOTE | 2017-01-08 06:44 | Oncology Progress Note ---
Oncology Subjective PN Interval history: Problems: Anemia the hemoglobin is 8.0 today. If it drops further, I will order transfusion. thrombocytopenia : The platelet count today is 143,000. I suspect that she has a component of immune thrombocytopenia. leukopenia CBC today includes a white cell count 10,800. adenocarcinoma of the ascending colon Pathology is pending from the patient's colectomy. The comprehensive metabolic profile done today includes a low serum albumin of 2.9 and a random glucose of 264 but is otherwise normal. Exam - Constitutional Vitals: Period Temp Pulse Resp BP Sys/Cornell Pulse Ox Last 24 Hr 97.8 F-100.1 F 79-116 17-20 134-165/66-87 99-100 Results - Labs CBC & BMP: 01/08/17 04:22 01/08/17 04:22 Quality Measures - VTE Contraindication to Pharmacological VTE Prophylaxis: High Risk of Bleeding Specialty Discharge - Follow Up or Referrals
[2017-01-08 07:01] LABS: Basophils % 0.2 % (0.0-0.8); Eosinophils % 0.1 % (0.00-10.9); Immature Granulocytes % 0.4 %; Immature Granulocytes Absolute 0.04 #; Lymphocytes # 0.9 10*3/uL (1.4-4.0); Lymphocytes % 8.1 % (21.3-54.2); Mean Corpuscular HGB Conc 33.3 GM/DL (32-36); Mean Corpuscular Hemoglobin 29 PG (27-34); Mean Corpuscular Volume 87.3 FL (87-102); Mean Platelet Volume 11.3 FL (9.6-12.0); Monocytes # 1.1 10*3/uL (0.11-0.8); Monocytes % 9.7 % (1.7-12.7); Neutrophils # 8.8 10*3/uL (1.4-7.4); Neutrophils % 81.5 % (38.7-73.9); Platelet Count 143 T/CUMM (130-400); Red Blood Count 2.75 MC/CUMM (3.8-5.5); Red Cell Distribution Width 18.8 % (9.3-17.3); White Blood Count 10.8 T/CUMM (4-12)
[2017-01-08 07:23] LABS: Band Neutrophils 4 % (0-10); Hypochromasia 1+; Lymphocytes 11 % (20-55); Segmented Neutrophils 78 % (50-85); Total Cells Counted 100
[2017-01-08 07:24] LABS: Microcytosis 1+
[2017-01-08 07:25] LABS: Platelet Estimate Adequate
[2017-01-08 08:45] LABS: Bilirubin,Total 0.6 MG/DL (0.2-1.0); Calcium 8.9 MG/DL (8.5-10.1); Osmolality,Calculated 292.1 MOS/KG (273-304); Potassium 3.7 MMOL/L (3.5-5.1); Total Protein 5.9 G/DL (6.4-8.3)
[2017-01-08] MEDS ORDERED: SODIUM CHLORIDE 0.9% 250 ML IV PRN (08:56)
[2017-01-08] MEDS: SUCRALFATE 1 GM/10 ML UDCUP PO SCH ×4 (08:57→20:38)
[2017-01-08] MEDS: INSULIN LISPRO 100 UNIT/ML SUBCUT SCH ×4 (08:57→20:37)
[2017-01-08] MEDS ORDERED: FUROSEMIDE 20 MG/2 ML VIAL IV PRN (08:58)
--- NOTE | 2017-01-08 09:02 | Gastrointestinal Progress Note ---
Assessment and Plan (1) Cancer of ascending colon Status: Acute Assessment and plan: This colon cancer has a deep ulceration in it and I have no doubt that this is likely the source the patient's blood loss. She has dropped her hematocrit from baseline of 31% down to 25% since this was discovered back on 12/05/16. Unfortunately there is little more to do then resected that segment of colon that is involved likely with right hemicolectomy. Endoscopic therapy will not work adequately for this lesion. Would suggest expedited surgery. Dr. Pratt and I have discussed getting a hematology oncology consultation in place for her thrombocytopenia/pancytopenia prior to going to surgery. I do note that the patient has had this for many years and has undergone bilateral mastectomy without significant difficulties. She did have some problems with a prior tubal ligation and required a blood transfusion at that time. 01/03/17--Hematocrit is dropped down to 23% despite transfusion yesterday. Awaiting hematology oncology workup prior to taking to surgery according to Dr. Villanueva's recommendations 01/04/17--Another 2 units of blood were transfused yesterday and now the patient' s hematocrit is up to 30%. She is noticed a decrease in the amount of blood that she is having per rectum. She says there is only small amount coming out with her bowel movements this morning. The patient is due to have colon surgery on Thursday. I am not concerned about a secondary bleeding source aside from the colon cancer, the patient is undergone both upper and lower endoscopy with ascending tumor this being the only major source. We also await pathology on the lymph nodes removed to see whether or not this patient will require chemotherapy. 01/05/17--Patient appears to be doing well at this point. She is due to get a platelet transfusion tonight and Zarxio to stimulate her white blood cell count and potentially fight off infection. No colonic flush will be needed as this is a right hemicolectomy, with reduce risk of soilage as per Dr. Pratt. 01/06/17--In surgery at this time. She had a good response to both the platelet transfusion and Zarxio. 01/07/17--Syncopal event last night however the patient is doing well post surgery. 01/08/17--The patient's hematocrit is dropped even further currently is down to 24%. Considering her previous "syncopal episode" I think it is reasonable to go ahead and give her some blood to cushion her just in case she does have a significant bleed. She does not appear to be actively bleeding at this time. Agree that this is likely due to dilution and postsurgical changes. Increased oxygen carrying capabilities should help out with her healing overall as well. Current Visit: Yes (2) Lower gastrointestinal hemorrhage Status: Acute Assessment and plan: As noted above. Patient is getting blood transfusion at this time. 01/03/17-- no gross output of rectal bleeding today. Will continue to watch her hematocrit drift over time. She may need more blood today. 01/04/17--No acute changes 01/05/17--No further blood loss noted. The patient is doing well at this point. 01/06/17-- Hematocrit is improved as well to 34% today. 01/07/17-- The patient's hematocrit is dropped from 35.3% down to 25.6% this morning post surgery, on the right side the platelet levels up to 178 which is still in the normal limits as is the white blood cell count 9.5. Transfusion if surgery feels this will be helpful however will probably watch and see if she drops further. The above is after some IV fluids. 01/08/17--We Will write for blood transfusion at this time. We will follow hematocrit on a daily basis. Current Visit: Yes (3) Pancytopenia Status: Acute Assessment and plan: The patient does have a lifelong history of anemia with her most recent CBC done on 11/17/16 demonstrating a white blood cell count that was decreased to 4.1 , a hematocrit of 31.1%, platelet count of 94, and MCV of 82.5. The earliest CBC we [place] for this [place] [facility] [place] which demonstrated similar results at that time a WBC of 2.8 with an improved hematocrit of 37.1% and a platelet count of 72 at that time. Aside from a recent iron deficiency anemia, the pancytopenia has been long-term. Apparently this has interfered with a previous tubal ligation but not her mastectomies in the past. 01/03/17--as per Dr. Villanueva who is seeing the patient today. 01/04/17--Dr. Villanueva is recommended transfusion of needed blood products but no further aggressive workup is required at this time. He does note that the patient has had a clinical course this spanned some 24 years and has been stable. 01/05/17--Observation with platelet transfusion and Zarxio injection. 01/06/17--Improved today post infusions yesterday. 01/07/17--Improved as noted above. 01/08/17--Observe. This appears to be doing well aside from the mild anemia. Current Visit: Yes Gastroenterology - PN: Subj Interval history: Patient is feeling mildly fatigued can certainly has a low hematocrit down to 24 %. I think is a cushion we should probably go ahead and give her 2 units of packed red blood cells and try to get her closer to 30% in case she does have an active bleed. Her blood sugars have been ranging in the 300s possibly due to the clear liquids although these were appropriately written as diabetic in the patient's p.o. supplements are actually Glucerna, so I am not sure why her elevations are occurring to this degree. Will defer to pulmonary and internal medicine for this. Exam (Progress Note) - Constitutional Vitals: Period Temp Pulse Resp BP Sys/Cornell Pulse Ox Last 24 Hr 97.8 F-100.1 F 83-116 17-20 138-165/74-87 94-100 General appearance: no acute distress - Eye Eye exam: Present: EOMI - Respiratory Respiratory exam: Present: clear to auscultation bilaterally. Absent: stridor, wheezes - Cardiovascular Cardiovascular exam: Present: regular rate and rhythm - GI/Abdominal GI/Abdominal exam: Present: normal bowel sounds, tenderness (Mild appropriate postsurgical pain in the right upper and lower abdomen greater than left lower abdomen), soft - Neurological Exam Neurological exam: Present: alert, oriented X3 - Psychiatric Psychiatric exam: Present: normal affect, normal mood - Skin Skin exam: Present: warm Results - Labs CBC & BMP: 01/08/17 04:22 01/08/17 07:37 Specialty Discharge - Follow Up or Referrals
[2017-01-08] MEDS ORDERED: DEXTROSE 50% 25 GM/50 ML VIAL IV PRN (09:13)
[2017-01-08] MEDS ORDERED: GLUCAGON 1 MG VIAL IM PRN (09:13)
--- NOTE | 2017-01-08 09:28 | Pulmonology Progress Note ---
Pulmonary - PN: Subj Interval history: Jared Romero, ANP-BC, GNP-BC, acting as scribe for Dr. Aníbal Barone Ms. Nash is a 66-year-old -[place] female who we saw in initial pulmonary consultation on 01/05/2017. At that time, our impressions were: 1. Jip-uycquqj-daoffcwyv diabetes mellitus 2. History of rheumatic fever and abnormal mitral valve followed by Dr. Rory Roche 3. Colon cancer with GI bleed 4. Long history of pancytopenia. 5. Allergic sinusitis in the good control 6. See past history 01/06/2017. The patient is out of the room and has been taken to surgery for colectomy as per Dr. Pratt, III. Chest x-ray yesterday showed no acute process. EKG shows an incomplete right bundle branch block. Labs showed a white count of 13,400 with 82.4% segs; H&H 11.0/34.0; platelet count has improved to 117,000 with platelet transfusion; creatinine 1.00, BUN 21, electrolytes are normal; liver function tests within normal limits; calcium 9.1 , albumin 3.2, total protein 6.4; for TSH and free T4 normal at 0.913 and 0.95 respectively; urinalysis showed no evidence of infection 01/07/2017. On 01/06/2017 patient had a laparoscopic right hemicolectomy. Path is pending. She complains of being sore this morning. Otherwise she has done very well. H&H is dropped to 8.4/25.8. White count is 9500 with 83 segs and 5 lymphs. Platelets are 178,000. Electrolytes are normal. Creatinine is 1.1 with a BUN of 19. Liver function tests are normal. Total protein and albumin are low at 5.4 and 2.7 respectively. Urinalysis is normal.Chest x-ray done 01/05 was normal. 01/08/2017. The patient was seen today along with her nurse Priya Juarez RN. We have discussed the case with Dr. Wick and coordinated her care. Her H&H has dropped 8.0/24.0. Dr. Wick has ordered 2 units of packed red blood cells be transfused today. We certainly agree with this. The patient's glucoses are remaining elevated. Of note, she was on glipizide 5 mg twice daily and metformin 500 mg twice daily at home. She is not on these medications presently. She has been covered with sliding scale insulin with only twice daily. We will change this to before meals and at bedtime to try to get better control of her glucoses. Once patient begins to pass flatus and have bowel movements we will restart her home diabetic medications. Medications have been reviewed. Labs been reviewed. White count is 10,800 with 81.5% segs; H&H 8.0/24.0; platelet count 143,000; creatinine 0.80, BUN 14, sodium 142, potassium 3.7; liver function tests within normal limits; calcium 8.9, albumin 3.0, total protein 5.9 Exam (Progress Note) - Constitutional Vitals: Period Temp Pulse Resp BP Sys/Cornell Pulse Ox Last 24 Hr 97.8 F-100.1 F 83-116 17-20 138-165/74-87 94-100 Exam: Chest is clear Heart no gallop Abdomen is postsurgical Extremities with nothing to suggest acute deep venous thrombophlebitis Psychiatric oriented 3 Neurologic long-term motor function is intact Plan: Change insulin to Humalog per medium sliding scale before meals and at bedtime. Accu-Cheks before meals, at bedtime, and as needed. Agree with blood transfusion today. See orders. Results - Labs CBC & BMP: 01/08/17 04:22 01/08/17 07:37 Specialty Discharge - Follow Up or Referrals
--- NOTE | 2017-01-08 10:28 | Event Note ---
She feels well. She has had low-grade temperature and some mild tachycardia when her temperature is up. Her hematocrit is remained stable. She is anemic but not significantly so. Her abdomen is benign. We have started her on some liquids. We will try to get her up more and push luminary toilet.
--- NOTE | 2017-01-08 14:32 | Hospitalist Progress Note ---
Assessment and Plan - Time spent with patient Time spent with patient: Greater than 30 minutes (1) Colon cancer Status: Acute Assessment and plan: Status post laparoscopic right hemicolectomy. Defer to oncology. Appreciate their assistance. Current Visit: Yes (2) Diabetes Status: Acute Assessment and plan: Hemoglobin A1c is 7.4. On clear diet. Once the patient begins eating will start oral medications. Insulin has been adjusted. Current Visit: Yes (3) Lower gastrointestinal hemorrhage Status: Acute Assessment and plan: No recurrence of bleeding, stable. Current Visit: Yes (4) Acute blood loss anemia Status: Acute Assessment and plan: Hemoglobin stable. Current Visit: Yes Hospitalist: Subjective Interval history: T-max of 100 Fahrenheit. Patient is not passing gas and having bowel movements. Reports some mild tenderness of the abdomen. Exam - Constitutional Vitals: Period Temp Pulse Resp BP Sys/Cornell Pulse Ox Last 24 Hr 98.8 F-100.1 F 99-118 17-22 114-165/55-87 94-100 General appearance: no acute distress - Head Head exam: Present: normocephalic, atraumatic - Eye Eye exam: Present: EOMI Pupils: Present: CINDY - ENT ENT exam: Present: normal exam - Neck Neck exam: Present: normal inspection - Respiratory Respiratory exam: Present: clear to auscultation bilaterally. Absent: rhonchi, wheezes - Cardiovascular Cardiovascular exam: Present: regular rate and rhythm. Absent: gallop, rubs, systolic murmur - GI/Abdominal GI/Abdominal exam: Present: normal bowel sounds, soft, other (Abdominal incisions underneath surgical dressing.). Absent: distended, firm, guarding, tenderness, rebound - Extremities Exam Extremities exam: Present: normal inspection. Absent: calf tenderness, edema Results - Labs CBC & BMP: 01/08/17 04:22 01/08/17 07:37 Lab Results: I have reviewed the past 24 hour labs Quality Measures - VTE Contraindication to Pharmacological VTE Prophylaxis: High Risk of Bleeding Specialty Discharge - Follow Up or Referrals
--- NOTE | 2017-01-08 18:16 | Pathology Report from [facility] ---
[facility] ACCESSION # : [id number] PATIENT NAME : Nikos Pereira ORDERING DR : VERONICA MALIK III, MD CLINICAL HX: Rectal bleeding/colon CA POST-OP DX: Same SPECIMEN INFO: #1 RT colon - test margins #2 Terminal ileum #3 Mesenteric lymph node GROSS DESCRIPTION: #1 Received fresh labeled with the patients name NIKOS PEREIRA and (A) and consists of a segment of a right colon measuring 12.5 x 4.0 cm. The serosa is hyperemic, cox with an area of hemorrhage present measuring approximately 4.0 cm. There are adhesions present. An appendix is present which measures 6.4 x 0.6 cm. Cut surfaces of the appendix are unremarkable. There is a portion of terminal ileum which measures 1.5 x 2.5 cm. Opening the colon reveals a 3.0 x 2.5 cm ulcerated lesion which is situated approximately 5.0 cm from the proximal margin and 8.0 cm from the distal margin. The tumor appears to grossly invade the bowel wall. There are multiple diverticula present measuring up to 1.5 cm. Sections submitted: 1A proximal margin, 1B distal margin, 1C mesenteric margin, 1D and 1E front desk representative tumor, 1F front desk representative diverticula and 1G appendix. Lymph nodes are submitted in cassettes 1H and 1I and additional lymph nodes will be submitted following fixation in dissect aid.#2 Received in formalin labeled with the patients name NIKOS PEREIRA and (B) TERMINAL ILEUM consists of a 5.1 cm x up to 2.8 cm terminal ileum. Proximal and distal ends are not designated. The serosa is hyperemic, pink-cox. The mucosa is pink-cox and displays normal mucosal folds with no lesions identified. A front desk representative section of mucosa and each margin is submitted in cassettes 2A and 2B.#3 Received in formalin labeled with the patients name NIKOS PEREIRA and (C) MESENTERIC LYMPH NODE consists of a 1.3 x 0.7 cm kapoor-yellow lymph node with attached adipose tissue. Bisected and submitted in cassette #3. DIAGNOSIS FOR NIKOS PEREIRA: #1 #2 #3COLON, PARTIAL ILEOCOLECTOMY (Intact, 12.5 x 4.0 cm; plus terminal ileum 5.1 cm): TYPE: Invasive adenocarcinoma, mucinous. TUMOR SITE: Ascending colon. TUMOR SIZE: 3.0 x 2.5 cm. MACROSCOPIC TUMOR PERFORATION: Absent. HISTOLOGIC GRADE: Moderately- differentiated. MICROSCOPIC TUMOR EXTENSION: Through muscularis propria. MARGINS, PROXIMAL: Uninvolved by carcinoma, distance = 10.1 cm. DISTAL: Uninvolved by carcinoma, distance = 8.0 cm. MESENTERIC: Uninvolved by carcinoma, distance = 3.0 cm. TREATMENT EFFECT: No prior treatment. LYMPH VASCULAR INVASION: Absent. PERINEURAL INVASION: Absent. TUMOR DEPOSITS: Not identified. LYMPH NODES: NUMBER EXAMINED: 15. NUMBER INVOLVED: 0. ADDITIONAL FINDINGS: Diverticulosis.AJCC PATHOLOGIC STAGE IIA ([id number]). COLLECTED DATE: 01/06/2017 [facility] REPORT DATE: 01/08/2017 ELECTRONICALLY SIGNED BY: Sharon Mcdonnell M.D. 01/08/2017 - 11:52:15 [email or web address]
[2017-01-08] MEDS: ACETAMINOPHEN 325 MG TABLET PO PRN (20:38)
[2017-01-08] MEDS: CYANOCOBALAMIN 500 MCG TABLET PO SCH (20:38)
[2017-01-09 05:29] LABS: Basophils % 0.3 % (0.0-0.8); Eosinophils # 0.2 10*3/uL (0.0-0.87); Eosinophils % 3.6 % (0.00-10.9); Hematocrit 32.2 VOL% (35.7-47.0); Hemoglobin 10.6 GM/DL (12.0-16.0); Immature Granulocytes % 0.3 %; Immature Granulocytes Absolute 0.02 #; Lymphocytes # 1.2 10*3/uL (1.4-4.0); Lymphocytes % 17.8 % (21.3-54.2); Mean Corpuscular HGB Conc 32.9 GM/DL (32-36); Mean Corpuscular Hemoglobin 27 PG (27-34); Mean Corpuscular Volume 83.2 FL (87-102); Mean Platelet Volume 10.6 FL (9.6-12.0); Monocytes # 0.8 10*3/uL (0.11-0.8); Monocytes % 12.3 % (1.7-12.7); Neutrophils # 4.3 10*3/uL (1.4-7.4); Neutrophils % 65.7 % (38.7-73.9); Platelet Count 114 T/CUMM (130-400); Red Blood Count 3.87 MC/CUMM (3.8-5.5); Red Cell Distribution Width 18.2 % (9.3-17.3); White Blood Count 6.6 T/CUMM (4-12)
[2017-01-09 06:03] LABS: Albumin 2.7 G/DL (3.4-5.0); Bilirubin,Total 0.9 MG/DL (0.2-1.0); Calcium 8.5 MG/DL (8.5-10.1); Osmolality,Calculated 289.3 MOS/KG (273-304); Potassium 3.4 MMOL/L (3.5-5.1); Total Protein 5.6 G/DL (6.4-8.3)
[2017-01-09 06:39] LABS: Hypochromasia 2+; Microcytosis 2+
--- NOTE | 2017-01-09 07:05 | Gastrointestinal Progress Note ---
Assessment and Plan (1) Cancer of ascending colon Status: Acute Assessment and plan: This colon cancer has a deep ulceration in it and I have no doubt that this is likely the source the patient's blood loss. She has dropped her hematocrit from baseline of 31% down to 25% since this was discovered back on 12/05/16. Unfortunately there is little more to do then resected that segment of colon that is involved likely with right hemicolectomy. Endoscopic therapy will not work adequately for this lesion. Would suggest expedited surgery. Dr. Pratt and I have discussed getting a hematology oncology consultation in place for her thrombocytopenia/pancytopenia prior to going to surgery. I do note that the patient has had this for many years and has undergone bilateral mastectomy without significant difficulties. She did have some problems with a prior tubal ligation and required a blood transfusion at that time. 01/03/17--Hematocrit is dropped down to 23% despite transfusion yesterday. Awaiting hematology oncology workup prior to taking to surgery according to Dr. Villanueva's recommendations 01/04/17--Another 2 units of blood were transfused yesterday and now the patient' s hematocrit is up to 30%. She is noticed a decrease in the amount of blood that she is having per rectum. She says there is only small amount coming out with her bowel movements this morning. The patient is due to have colon surgery on Thursday. I am not concerned about a secondary bleeding source aside from the colon cancer, the patient is undergone both upper and lower endoscopy with ascending tumor this being the only major source. We also await pathology on the lymph nodes removed to see whether or not this patient will require chemotherapy. 01/05/17--Patient appears to be doing well at this point. She is due to get a platelet transfusion tonight and Zarxio to stimulate her white blood cell count and potentially fight off infection. No colonic flush will be needed as this is a right hemicolectomy, with reduce risk of soilage as per Dr. Pratt. 01/06/17--In surgery at this time. She had a good response to both the platelet transfusion and Zarxio. 01/07/17--Syncopal event last night however the patient is doing well post surgery. 01/08/17--The patient's hematocrit is dropped even further currently is down to 24%. Considering her previous "syncopal episode" I think it is reasonable to go ahead and give her some blood to cushion her just in case she does have a significant bleed. She does not appear to be actively bleeding at this time. Agree that this is likely due to dilution and postsurgical changes. Increased oxygen carrying capabilities should help out with her healing overall as well. 01/09/17--the patient's hematocrit has improved to 32% status post transfusion yesterday. She feels well. She is ecstatic and having the results of the pathology back and discovering that her tumor is a AJCC IIA with 0 out of 15 nodes positive--likely surgically cured. Current Visit: Yes (2) Lower gastrointestinal hemorrhage Status: Acute Assessment and plan: As noted above. Patient is getting blood transfusion at this time. 01/03/17-- no gross output of rectal bleeding today. Will continue to watch her hematocrit drift over time. She may need more blood today. 01/04/17--No acute changes 01/05/17--No further blood loss noted. The patient is doing well at this point. 01/06/17-- Hematocrit is improved as well to 34% today. 01/07/17-- The patient's hematocrit is dropped from 35.3% down to 25.6% this morning post surgery, on the right side the platelet levels up to 178 which is still in the normal limits as is the white blood cell count 9.5. Transfusion if surgery feels this will be helpful however will probably watch and see if she drops further. The above is after some IV fluids. 01/08/17--We Will write for blood transfusion at this time. We will follow hematocrit on a daily basis. 01/09/17--The hematocrit is certainly better than it was yesterday at 32%. She can likely be discharged at this time from a GI standpoint. Thank you for the opportunity see this very pleasant lady I will sign off at this time. Current Visit: Yes (3) Pancytopenia Status: Acute Assessment and plan: The patient does have a lifelong history of anemia with her most recent CBC done on 11/17/16 demonstrating a white blood cell count that was decreased to 4.1 , a hematocrit of 31.1%, platelet count of 94, and MCV of 82.5. The earliest CBC we have on file for this patient at the [facility] [place] was from 01/24/09 which demonstrated similar results at that time a WBC of 2.8 with an improved hematocrit of 37.1% and a platelet count of 72 at that time. Aside from a recent iron deficiency anemia, the pancytopenia has been long-term. Apparently this has interfered with a previous tubal ligation but not her mastectomies in the past. 01/03/17--as per Dr. Villanueva who is seeing the patient today. 01/04/17--Dr. Villanueva is recommended transfusion of needed blood products but no further aggressive workup is required at this time. He does note that the patient has had a clinical course this spanned some 24 years and has been stable. 01/05/17--Observation with platelet transfusion and Zarxio injection. 01/06/17--Improved today post infusions yesterday. 01/07/17--Improved as noted above. 01/08/17--Observe. This appears to be doing well aside from the mild anemia. Current Visit: Yes Gastroenterology - PN: Subj Interval history: Doing well, no complaints, very happy about the findings of pathology which I related to her. 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 Exam (Progress Note) - Constitutional Vitals: Period Temp Pulse Resp BP Sys/Cornell Pulse Ox Last 24 Hr 99.3 F-100.4 F 97-118 16-22 114-142/55-75 94-100 General appearance: no acute distress - Eye Eye exam: Present: EOMI Pupils: Present: CINDY - Respiratory Respiratory exam: Present: clear to auscultation bilaterally - Cardiovascular Cardiovascular exam: Present: regular rate and rhythm - GI/Abdominal GI/Abdominal exam: Present: normal bowel sounds, tenderness, soft. Absent: distended, guarding, rebound - Extremities Exam Extremities exam: Absent: edema - Neurological Exam Neurological exam: Present: alert, oriented X3 - Psychiatric Psychiatric exam: Present: normal affect, normal mood - Skin Skin exam: Present: normal color, warm Results - Labs CBC & BMP: 01/09/17 05:04 01/09/17 05:04 Specialty Discharge - Follow Up or Referrals
--- NOTE | 2017-01-09 07:51 | Oncology Progress Note ---
Oncology Subjective PN Interval history: Problems: Anemia the hemoglobin is 10.6 today. thrombocytopenia : The platelet count today is 114,000. I suspect that she has a component of immune thrombocytopenia. leukopenia CBC today includes a white cell count 4300. adenocarcinoma of the ascending colon The pathology report has returned. This is pathologic stage II A, pT3pN0. The tumor involves the ascending colon and measures 3.0 x 2.5 cm. It is moderately differentiated histologic grade. It was completely resected. There was no evidence of involvement of the mesentery. There was no lymphovascular or perineural invasion. There was macroscopic tumor perforation of the bowel wall. I will order an appointment to see me in about a month and we will discuss additional treatment at that time. Exam - Constitutional Vitals: Period Temp Pulse Resp BP Sys/Cornell Pulse Ox Last 24 Hr 98.6 F-100.4 F 97-118 16-22 99-142/55-75 94-100 Results - Labs CBC & BMP: 01/09/17 05:04 01/09/17 05:04 Quality Measures - VTE Contraindication to Pharmacological VTE Prophylaxis: High Risk of Bleeding Specialty Discharge - Follow Up or Referrals
[2017-01-09] MEDS: INSULIN LISPRO 100 UNIT/ML SUBCUT SCH ×4 (08:32→20:45)
[2017-01-09] MEDS: SUCRALFATE 1 GM/10 ML UDCUP PO SCH ×4 (08:32→20:46)
[2017-01-09] MEDS ORDERED: POTASSIUM CHLORIDE 20 MEQ TABLET PO ONE (09:34)
--- NOTE | 2017-01-09 09:37 | Pulmonology Progress Note ---
Pulmonary - PN: Subj Interval history: Ms. Nash is a 66-year-old -[place] female who we saw in initial pulmonary consultation on 01/05/2017. At that time, our impressions were: 1. Kco-wxiuqjl-akcauxmsf diabetes mellitus 2. History of rheumatic fever and abnormal mitral valve followed by Dr. Rory Roche 3. Colon cancer with GI bleed 4. Long history of pancytopenia. 5. Allergic sinusitis in the good control 6. See past history 01/06/2017. The patient is out of the room and has been taken to surgery for colectomy as per Dr. Pratt, III. Chest x-ray yesterday showed no acute process. EKG shows an incomplete right bundle branch block. Labs showed a white count of 13,400 with 82.4% segs; H&H 11.0/34.0; platelet count has improved to 117,000 with platelet transfusion; creatinine 1.00, BUN 21, electrolytes are normal; liver function tests within normal limits; calcium 9.1 , albumin 3.2, total protein 6.4; for TSH and free T4 normal at 0.913 and 0.95 respectively; urinalysis showed no evidence of infection 01/07/2017. On 01/06/2017 patient had a laparoscopic right hemicolectomy. Path is pending. She complains of being sore this morning. Otherwise she has done very well. H&H is dropped to 8.4/25.8. White count is 9500 with 83 segs and 5 lymphs. Platelets are 178,000. Electrolytes are normal. Creatinine is 1.1 with a BUN of 19. Liver function tests are normal. Total protein and albumin are low at 5.4 and 2.7 respectively. Urinalysis is normal.Chest x-ray done 01/05 was normal. 01/08/2017. Dr. Mane Lopez reviewed the case and coordinated care. We will transfuse the patient with blood. Have increased her sliding scale. 01/09/2017. This patient had a colectomy on 01/06/2017. She is done very well but she has had no flatus thus far. She is much more comfortable today. Patient has a history of pancytopenia dating back years. She was transfused yesterday. H&H is 10.6/32.2. Potassium is low at 3.4. We will give replacement. Glucose is much better with adjustment of insulin and sliding scale which we did yesterday. This patient's outpatient hemoglobin A1c was elevated at 7.4. When this patient is converted to p.o. medicines for her diabetes. We will start her on glipizide 10 mg twice daily and metformin 500 mg twice daily. She should be eating close to normal before we start these. Physical exam. Vital signs. See below Psychiatric oriented 3 Neurologic. Cranial nerves are intact long track motor functions intact Face. Symmetrical. No swelling of the lips or tongue. Neck. Symmetrical with no meningismus. Lymphatics no submandibular cervical supraclavicular or epitrochlear adenopathy. Chest. Clear. Heart. No gallop Abdomen. Postsurgical. Soft. I do not hear any bowel sounds. Extremities. Nothing to suggest deep venous thrombophlebitis The remainder the physical exam is noncontributory. Plan. 01/07/2017 1. Continue present regimen. 2. Watch H&H. Patient might require blood transfusion. 01/08/2017. 1. See today's note above. 2. Blood transfusion 3. Adjustments insulin 01/09/2017. 1. See today's note above. 2. No flatus 3. Once the patient is eating close to normal restart p.o. diabetic medicines as outlined in today's note above Exam (Progress Note) - Constitutional Vitals: Period Temp Pulse Resp BP Sys/Cornell Pulse Ox Last 24 Hr 98.6 F-100.4 F 97-118 16-22 99-142/55-70 96-100 Results - Labs CBC & BMP: 01/09/17 05:04 01/09/17 05:04 Specialty Discharge - Follow Up or Referrals Follow up with: Geoff Villanueva MD [Physician] - 02/09/17 10:45 am (APPT WITH IS ON January AT 1045AM FOR LAB WORK AND TO SEE THE DR AT 1245PM)
--- NOTE | 2017-01-09 10:08 | Hospitalist Progress Note ---
Assessment and Plan - Time spent with patient Time spent with patient: Greater than 30 minutes (1) Colon cancer Status: Acute Assessment and plan: Status post laparoscopic right hemicolectomy. Defer to oncology. Appreciate their assistance. Current Visit: Yes (2) Diabetes Status: Acute Assessment and plan: Hemoglobin A1c is 7.4. On clear diet. Once the patient begins eating will start oral medications. Insulin has been adjusted. Current Visit: Yes (3) Lower gastrointestinal hemorrhage Status: Acute Assessment and plan: No recurrence of bleeding, stable. Current Visit: Yes (4) Acute blood loss anemia Status: Acute Assessment and plan: Hemoglobin stable. Current Visit: Yes Hospitalist: Subjective Interval history: No complaints. States she has not had a bowel movement yet or past gas. Exam - Constitutional Vitals: Period Temp Pulse Resp BP Sys/Cornell Pulse Ox Last 24 Hr 98.6 F-100.4 F 97-118 16-22 99-142/55-70 96-100 General appearance: no acute distress - Head Head exam: Present: normocephalic, atraumatic - Eye Eye exam: Present: EOMI Pupils: Present: CINDY - ENT ENT exam: Present: normal exam - Neck Neck exam: Present: normal inspection - Respiratory Respiratory exam: Present: clear to auscultation bilaterally. Absent: rhonchi, wheezes - Cardiovascular Cardiovascular exam: Present: regular rate and rhythm. Absent: gallop, rubs, systolic murmur - GI/Abdominal GI/Abdominal exam: Present: normal bowel sounds, soft, other (Abdominal incisions underneath surgical dressing). Absent: distended, firm, guarding, tenderness, rebound - Extremities Exam Extremities exam: Present: normal inspection. Absent: calf tenderness, edema Results - Labs CBC & BMP: 01/09/17 05:04 01/09/17 05:04 Lab Results: I have reviewed the past 24 hour labs Quality Measures - VTE Contraindication to Pharmacological VTE Prophylaxis: High Risk of Bleeding Specialty Discharge - Follow Up or Referrals Follow up with: Tomi Pratt III., MD [Physician] - 01/15/17 3:00 pm Geoff Villanueva MD [Physician] - 02/09/17 10:45 am (APPT WITH IS ON January AT 1045AM FOR LAB WORK AND TO SEE THE DR AT 1245PM)
--- NOTE | 2017-01-09 11:14 | Event Note ---
She feels well. She has minimal abdominal pain and still has a tachycardia even after transfusion of 2 units of blood. Her hematocrit is adequate at this point and this is not really changed from mild tachycardia. She looks good and feels well. We will slowly advance her diet and hopefully she will be ready for discharge in the next day or 2. Fortunately her pathology shows all negative lymph nodes.
[2017-01-09] MEDS: CYANOCOBALAMIN 500 MCG TABLET PO SCH (20:46)
[2017-01-10 04:00] LABS: Basophils % 0.4 % (0.0-0.8); Eosinophils # 0.3 10*3/uL (0.0-0.87); Eosinophils % 6.8 % (0.00-10.9); Hematocrit 29.3 VOL% (35.7-47.0); Hemoglobin 9.7 GM/DL (12.0-16.0); Immature Granulocytes % 0.8 %; Immature Granulocytes Absolute 0.04 #; Lymphocytes # 1.1 10*3/uL (1.4-4.0); Mean Corpuscular HGB Conc 33.1 GM/DL (32-36); Mean Corpuscular Hemoglobin 28 PG (27-34); Mean Corpuscular Volume 84.2 FL (87-102); Mean Platelet Volume 11.5 FL (9.6-12.0); Monocytes # 0.8 10*3/uL (0.11-0.8); Neutrophils # 2.5 10*3/uL (1.4-7.4); Platelet Count 103 T/CUMM (130-400); Red Blood Count 3.48 MC/CUMM (3.8-5.5); Red Cell Distribution Width 17.7 % (9.3-17.3); White Blood Count 4.8 T/CUMM (4-12)
[2017-01-10 04:13] LABS: Calcium 8.6 MG/DL (8.5-10.1); Magnesium 1.9 MG/DL (1.8-2.4); Osmolality,Calculated 292.7 MOS/KG (273-304); Potassium 3.3 MMOL/L (3.5-5.1)
[2017-01-10 04:16] LABS: Albumin 2.6 G/DL (3.4-5.0); Bilirubin,Total 0.8 MG/DL (0.2-1.0); Calcium 8.6 MG/DL (8.5-10.1); Osmolality,Calculated 292.7 MOS/KG (273-304); Potassium 3.2 MMOL/L (3.5-5.1); Total Protein 5.1 G/DL (6.4-8.3)
[2017-01-10 04:39] LABS: Anisocytosis 1+; Band Neutrophils 1 % (0-10); Eosinophils 9 % (0-10); Hypochromasia Slight; Lymphocytes 29 % (20-55); Nucleated Red Blood Cells 2 (0-5); Platelet Estimate Adequate; Segmented Neutrophils 52 % (50-85); Target Cells Few; Total Cells Counted 100
--- NOTE | 2017-01-10 07:18 | Event Note ---
General Surgery Progress Note Chief complaint This patient is a 66-year-old woman who underwent a laparoscopic assisted right colectomy for right colon cancer on 01/06/[address] Pratt Interval history The patient had no events overnight. She is having some low-grade temperatures at night and some intermittent tachycardia. She has no abdominal pain to speak of. She is passing plenty of gas but has not had a bowel movement yet. No nausea or vomiting and she did tolerate a regular diet last night. Hemoglobin was down to 9.7 from 10.6 yesterday. Creatinine is normal and white blood cell count is normal Physical exam The patient is afebrile currently she is having some low-grade temps in the middle the night and her heart rate is now normal but she has had some intermittent low-grade tachycardia with normal blood pressure Chest is clear Heart is regular Abdomen is soft and nondistended with normal bowel sounds and clean incisions Labs Reviewed, as above Imaging None new Assessment and plan We will repeat the patient's hemoglobin at noon. I do not think she is bleeding. If the hemoglobin is stable she can be discharged home today and follow-up with Dr. Pratt next week or 2.
[2017-01-10] MEDS: INSULIN LISPRO 100 UNIT/ML SUBCUT SCH ×4 (08:20→20:33)
[2017-01-10] MEDS: SUCRALFATE 1 GM/10 ML UDCUP PO SCH ×4 (08:20→20:35)
--- NOTE | 2017-01-10 10:57 | Pulmonology Progress Note ---
Pulmonary - PN: Subj Interval history: The patient is a 66-year-old black lady that has diabetes and an abnormal mitral valve. She apparently has had a long history of pancytopenia. She was found to have a colon cancer. She came in and had a lap colon resection and actually has done fairly well. She says she is walking around a little bit but gets lightheaded at times. She is still very sore but is starting to eat a little better. She is not short of breath and says she is feeling okay. Her T- max was 99.7. She has not had much bowel activity since surgery. Exam (Progress Note) - Constitutional Vitals: Period Temp Pulse Resp BP Sys/Cornell Pulse Ox Last 24 Hr 97.3 F-99.7 F 82-120 17-20 87-177/50-83 95-100 General appearance: no acute distress (She is sitting up and looks comfortable.) , under weight - Head Head exam: Present: normal inspection, normocephalic - Eye Eye exam: Present: EOMI. Absent: scleral icterus Pupils: Present: CINDY - ENT ENT exam: Present: normal exam - Neck Neck exam: Present: normal inspection. Absent: lymphadenopathy, thyromegaly - Respiratory Respiratory exam: Present: clear to auscultation bilaterally. Absent: wheezes - Cardiovascular Cardiovascular exam: Present: regular rate and rhythm (Her heart rate is around 100.). Absent: gallop, systolic murmur - GI/Abdominal GI/Abdominal exam: Present: hypoactive bowel sounds, tenderness, soft, other ( Her surgery site looks good.). Absent: distended, organomegaly - Extremities Exam Extremities exam: Absent: calf tenderness, edema - Back Exam Back exam: Present: normal inspection - Neurological Exam Neurological exam: Present: alert, oriented X3, CN II-XII intact - Psychiatric Psychiatric exam: Present: normal affect - Skin Skin exam: Present: warm, dry Results - Labs CBC & BMP: 01/10/17 02:32 01/10/17 02:32 Assessment and Plan (1) Pancytopenia Status: Acute Assessment and plan: Patient has a history of having pancytopenia but her counts are doing fairly well today. Her platelet count is 103,000. Her white count was 4800. Her hematocrit is 29. Current Visit: Yes (2) Diabetes Status: Acute Assessment and plan: Her glucose was 136 this morning. Current Visit: Yes (3) Cancer of ascending colon Status: Acute Assessment and plan: Patient is status post resection of the colon cancer. She seems to be doing fairly well postop. She is starting to ambulate more. She is eating a little better. Current Visit: Yes (4) Acute blood loss anemia Status: Acute Assessment and plan: The patient presented with blood loss anemia and was found to have a colon cancer. Current Visit: Yes Specialty Discharge - Follow Up or Referrals Follow up with: Tomi Pratt III., MD [Physician] - 01/15/17 3:00 pm Geoff Villanueva MD [Physician] - 02/09/17 10:45 am (APPT WITH IS ON January AT 1045AM FOR LAB WORK AND TO SEE THE DR AT 1245PM)
[2017-01-10] MEDS: MAGNESIUM HYDROXIDE SUSP 30 ML UDCUP PO PRN (11:01)
--- NOTE | 2017-01-10 11:15 | Hospitalist Progress Note ---
Assessment and Plan - Time spent with patient Time spent with patient: Greater than 30 minutes (1) Colon cancer Status: Acute Assessment and plan: Status post laparoscopic right hemicolectomy. Defer to oncology. Appreciate their assistance. She has not had BM yet. Passing small amounts of gas. Will start miralax. Current Visit: Yes (2) Diabetes Status: Acute Assessment and plan: Hemoglobin A1c is 7.4. On clear diet. Once the patient begins eating will start oral medications. Insulin has been adjusted. Current Visit: Yes (3) Lower gastrointestinal hemorrhage Status: Acute Assessment and plan: No recurrence of bleeding, stable. Current Visit: Yes (4) Acute blood loss anemia Status: Acute Assessment and plan: Hemoglobin stable. Current Visit: Yes Hospitalist: Subjective Interval history: No complaints or overnight events. NO BM yet, she has passes a small amount of gas. Exam - Constitutional Vitals: Period Temp Pulse Resp BP Sys/Cornell Pulse Ox Last 24 Hr 97.3 F-99.7 F 82-120 17-20 87-177/50-83 95-100 General appearance: no acute distress - Head Head exam: Present: normocephalic, atraumatic - Eye Eye exam: Present: EOMI Pupils: Present: CINDY - ENT ENT exam: Present: normal exam - Neck Neck exam: Present: normal inspection - Respiratory Respiratory exam: Present: clear to auscultation bilaterally. Absent: rhonchi, wheezes - Cardiovascular Cardiovascular exam: Present: regular rate and rhythm. Absent: gallop, rubs, systolic murmur - GI/Abdominal GI/Abdominal exam: Present: normal bowel sounds, soft, other (surgical incisions ). Absent: distended, firm, guarding, tenderness, rebound - Extremities Exam Extremities exam: Present: normal inspection. Absent: calf tenderness, edema Results - Labs CBC & BMP: 01/10/17 02:32 01/10/17 02:32 Lab Results: I have reviewed the past 24 hour labs Quality Measures - VTE Contraindication to Pharmacological VTE Prophylaxis: High Risk of Bleeding Specialty Discharge - Follow Up or Referrals Follow up with: Tomi Pratt III., MD [Physician] - 01/15/17 3:00 pm Geoff Villanueva MD [Physician] - 02/09/17 10:45 am (APPT WITH IS ON MON.T[facility] 24TH AT 1045AM FOR LAB WORK AND TO SEE THE DR AT 1245PM)
[2017-01-10] MEDS: CYANOCOBALAMIN 500 MCG TABLET PO SCH (20:35)
[2017-01-11 02:21] LABS: Basophils % 0.4 % (0.0-0.8); Eosinophils # 0.4 10*3/uL (0.0-0.87); Eosinophils % 8.9 % (0.00-10.9); Hematocrit 26.3 VOL% (35.7-47.0); Hemoglobin 8.7 GM/DL (12.0-16.0); Immature Granulocytes % 0.4 %; Immature Granulocytes Absolute 0.02 #; Lymphocytes # 1.3 10*3/uL (1.4-4.0); Lymphocytes % 28.3 % (21.3-54.2); Mean Corpuscular HGB Conc 33.1 GM/DL (32-36); Mean Corpuscular Hemoglobin 28 PG (27-34); Mean Corpuscular Volume 84.6 FL (87-102); Mean Platelet Volume 10.4 FL (9.6-12.0); Monocytes # 0.8 10*3/uL (0.11-0.8); Monocytes % 17.2 % (1.7-12.7); Neutrophils # 2.1 10*3/uL (1.4-7.4); Neutrophils % 44.8 % (38.7-73.9); Platelet Count 83 T/CUMM (130-400); Red Blood Count 3.11 MC/CUMM (3.8-5.5); Red Cell Distribution Width 17.3 % (9.3-17.3); White Blood Count 4.6 T/CUMM (4-12)
[2017-01-11 02:54] LABS: Albumin 2.5 G/DL (3.4-5.0); Bilirubin,Total 0.9 MG/DL (0.2-1.0); Osmolality,Calculated 292.7 MOS/KG (273-304); Potassium 3.4 MMOL/L (3.5-5.1); Total Protein 5.2 G/DL (6.4-8.3)
[2017-01-11 04:09] LABS: Anisocytosis 1+; Band Neutrophils 1 % (0-10); Eosinophils 7 % (0-10); Hypochromasia Slight; Lymphocytes 28 % (20-55); Myelocytes 10 %; Segmented Neutrophils 54 % (50-85); Total Cells Counted 100
[2017-01-11 04:10] LABS: Platelet Estimate Decreased
[2017-01-11] MEDS: MAGNESIUM HYDROXIDE SUSP 30 ML UDCUP PO PRN (06:35)
[2017-01-11] MEDS: SUCRALFATE 1 GM/10 ML UDCUP PO SCH ×4 (09:16→20:43)
[2017-01-11] MEDS: POLYETHYLENE GLYCOL POWDER 17 GM PACK PO SCH (09:16)
[2017-01-11] MEDS: INSULIN LISPRO 100 UNIT/ML SUBCUT SCH ×4 (09:16→20:43)
--- NOTE | 2017-01-11 09:48 | Pulmonology Progress Note ---
Pulmonary - PN: Subj Interval history: The patient is a 66-year-old black lady that has diabetes and an abnormal mitral valve. She apparently has had a long history of pancytopenia. She was found to have a colon cancer. She came in and had a lap colon resection and actually has done fairly well. She has had some trouble with having a bowel movement but she feels like she will have one soon. She is eating a little bit and walking better. She is not complaining of shortness of breath. Overall she thinks she is doing well. Exam (Progress Note) - Constitutional Vitals: Period Temp Pulse Resp BP Sys/Cornell Pulse Ox Last 24 Hr 97.8 F-99.8 F 91-108 16-220 97-110/53-69 99-100 Exam: General appearance: no acute distress (She is sitting up and looks comfortable. She is moving around better.), under weight - Head Head exam: Present: normal inspection, normocephalic - Eye Eye exam: Present: EOMI. Absent: scleral icterus Pupils: Present: CINDY - ENT ENT exam: Present: normal exam - Neck Neck exam: Present: normal inspection. Absent: lymphadenopathy, thyromegaly - Respiratory Respiratory exam: Present: clear to auscultation bilaterally. Absent: wheezes - Cardiovascular Cardiovascular exam: Present: regular rate and rhythm (Her heart rate is around 100.). Absent: gallop, systolic murmur - GI/Abdominal GI/Abdominal exam: Present: hypoactive bowel sounds, tenderness, soft, other ( Her surgery site looks good.). Absent: distended, organomegaly - Extremities Exam Extremities exam: Absent: calf tenderness, edema, she is moving her extremities well. - Back Exam Back exam: Present: normal inspection - Neurological Exam Neurological exam: Present: alert, oriented X3, CN II-XII intact, she has no focal deficits. - Psychiatric Psychiatric exam: Present: normal affect - Skin Skin exam: Present: warm, dry Results - Labs CBC & BMP: 01/11/17 01:39 01/11/17 01:39 Assessment and Plan (1) Pancytopenia Status: Acute Assessment and plan: Patient has a history of having pancytopenia but her counts are doing fairly well. Her platelet count is 83,000. Her white count was 4600. Her hematocrit is 26. Current Visit: Yes (2) Diabetes Status: Acute Assessment and plan: Her glucose was 108 this morning. Current Visit: Yes (3) Cancer of ascending colon Status: Acute Assessment and plan: Patient is status post resection of the colon cancer. She seems to be doing fairly well postop. She is starting to ambulate more. She is eating a little better. She is a little constipated but is taking some laxatives. Current Visit: Yes (4) Acute blood loss anemia Status: Acute Assessment and plan: The patient presented with blood loss anemia and was found to have a colon cancer. Her anemia is fairly stable at present. Current Visit: Yes Specialty Discharge - Follow Up or Referrals Follow up with: Tomi Pratt III., MD [Physician] - 01/15/17 3:00 pm Geoff Villanueva MD [Physician] - 02/09/17 10:45 am (APPT WITH IS ON January AT 1045AM FOR LAB WORK AND TO SEE THE DR AT 1245PM)
--- NOTE | 2017-01-11 11:06 | Hospitalist Progress Note ---
Assessment and Plan - Time spent with patient Time spent with patient: Greater than 30 minutes (1) Colon cancer Status: Acute Assessment and plan: Status post laparoscopic right hemicolectomy. Defer to oncology. Appreciate their assistance. Passing small amounts of gas and a small BM. Will start miralax. Current Visit: Yes (2) Diabetes Status: Acute Assessment and plan: Hemoglobin A1c is 7.4. On clear diet. Once the patient begins eating will start oral medications. Insulin has been adjusted. Current Visit: Yes (3) Lower gastrointestinal hemorrhage Status: Acute Assessment and plan: No recurrence of overt bleeding. Current Visit: Yes (4) Acute blood loss anemia Status: Acute Assessment and plan: Hemoglobin dropped from yesterday. Current Visit: Yes Hospitalist: Subjective Interval history: Had a small BM. States she is weak. Exam - Constitutional Vitals: Period Temp Pulse Resp BP Sys/Cornell Pulse Ox Last 24 Hr 97.8 F-99.8 F 91-108 16-220 97-110/53-69 99-100 General appearance: no acute distress - Head Head exam: Present: normocephalic, atraumatic - Eye Eye exam: Present: EOMI Pupils: Present: CINDY - ENT ENT exam: Present: normal exam - Neck Neck exam: Present: normal inspection - Respiratory Respiratory exam: Present: clear to auscultation bilaterally. Absent: rhonchi, wheezes - Cardiovascular Cardiovascular exam: Present: regular rate and rhythm. Absent: gallop, rubs, systolic murmur - GI/Abdominal GI/Abdominal exam: Present: normal bowel sounds, soft. Absent: distended, firm , guarding, tenderness, rebound - Extremities Exam Extremities exam: Present: normal inspection. Absent: calf tenderness, edema Results - Labs CBC & BMP: 01/11/17 01:39 01/11/17 01:39 Lab Results: I have reviewed the past 24 hour labs Quality Measures - VTE Contraindication to Pharmacological VTE Prophylaxis: High Risk of Bleeding Specialty Discharge - Follow Up or Referrals Follow up with: Tomi Pratt III., MD [Physician] - 01/15/17 3:00 pm Geoff Villanueva MD [Physician] - 02/09/17 10:45 am (APPT WITH IS ON January AT 1045AM FOR LAB WORK AND TO SEE THE DR AT 1245PM)
--- NOTE | 2017-01-11 11:55 | Event Note ---
General Surgery Progress Note Chief complaint This patient is a 66-year-old woman who underwent a laparoscopic assisted right colectomy for right colon cancer on 01/06/[address] Pratt III Interval history Patient continues to pass gas but no bowel movements yet. Hemoglobin is down to 8.7 today from 9.7 yesterday. Patient is not tachycardic or hypotensive and appears to be doing very well. She is tolerating a regular diet with no nausea or vomiting. Pain is minimal. He is walking in the hallway without any difficulty. Physical exam Afebrile with normal vital signs Abdominal exam is benign with clean incisions and normal bowel sounds Labs Reviewed, as above Imaging None new Assessment and plan The patient is having some difficulty with her CBGs which the hospitalist are treating. Her hemoglobin levels need to stabilize prior to discharge home but I think we might be dealing with some of her baseline pancytopenia here. I do not think there is any bleeding going on. Repeat CBC tomorrow and continue current care otherwise.
[2017-01-11] MEDS: CYANOCOBALAMIN 500 MCG TABLET PO SCH (20:43)
[2017-01-12 04:26] LABS: Basophils % 0.4 % (0.0-0.8); Eosinophils # 0.3 10*3/uL (0.0-0.87); Hemoglobin 8.8 GM/DL (12.0-16.0); Immature Granulocytes % 0.4 %; Immature Granulocytes Absolute 0.02 #; Lymphocytes # 1.1 10*3/uL (1.4-4.0); Lymphocytes % 21.2 % (21.3-54.2); Mean Corpuscular HGB Conc 32.6 GM/DL (32-36); Mean Corpuscular Hemoglobin 28 PG (27-34); Mean Platelet Volume 11.2 FL (9.6-12.0); Monocytes # 0.8 10*3/uL (0.11-0.8); Monocytes % 16.5 % (1.7-12.7); Neutrophils # 2.8 10*3/uL (1.4-7.4); Neutrophils % 55.5 % (38.7-73.9); Platelet Count 79 T/CUMM (130-400); Red Blood Count 3.14 MC/CUMM (3.8-5.5); Red Cell Distribution Width 17.4 % (9.3-17.3)
[2017-01-12 05:09] LABS: Eosinophils 7 % (0-10); Hypochromasia 1+; Lymphocytes 19 % (20-55); Microcytosis Slight; Platelet Estimate Decreased; Segmented Neutrophils 58 % (50-85); Total Cells Counted 100
--- NOTE | 2017-01-12 07:58 | Oncology Progress Note ---
Oncology Subjective PN Interval history: Lab work today: Anemia the hemoglobin is 8.8 today. thrombocytopenia : The platelet count today is 79,000. I suspect that she has a component of immune thrombocytopenia. leukopenia CBC today includes a white cell count 5000. adenocarcinoma of the ascending colon The pathology report has returned. This is pathologic stage II A, pT3pN0. The tumor involves the ascending colon and measures 3.0 x 2.5 cm. It is moderately differentiated histologic grade. It was completely resected. There was no evidence of involvement of the mesentery. There was no lymphovascular or perineural invasion. There was macroscopic tumor perforation of the bowel wall. I will order an appointment to see me in about a month and we will discuss additional treatment at that time. I will give her patient information from up-to-date on colon cancer. She should have an appointment to see me in about a month. Exam - Constitutional Vitals: Period Temp Pulse Resp BP Sys/Cornell Pulse Ox Last 24 Hr 97.3 F-99.0 F 80-110 16-20 101-125/51-59 97-100 Results - Labs CBC & BMP: 01/12/17 03:46 01/11/17 01:39 Quality Measures - VTE Contraindication to Pharmacological VTE Prophylaxis: High Risk of Bleeding Specialty Discharge - Follow Up or Referrals Follow up with: Tomi Pratt III., MD [Physician] - 01/15/17 3:00 pm Geoff Villanueva MD [Physician] - 02/09/17 10:45 am (APPT WITH IS ON January AT 1045AM FOR LAB WORK AND TO SEE THE DR AT 1245PM)
--- NOTE | 2017-01-12 08:31 | Event Note ---
She feels well. She is tolerating a diet and having bowel movements. Her abdomen is benign her wounds are okay. I think she should be fine for discharge when she is okay medically. I will follow her up in the office and 1 of my partners will see her in my absence as I will be [place] of the country the next couple of weeks.
[2017-01-12] MEDS: INSULIN LISPRO 100 UNIT/ML SUBCUT SCH ×2 (08:37→12:53)
[2017-01-12] MEDS: SUCRALFATE 1 GM/10 ML UDCUP PO SCH ×2 (08:37→11:13)
[2017-01-12] MEDS: POLYETHYLENE GLYCOL POWDER 17 GM PACK PO SCH (08:39)
--- NOTE | 2017-01-12 09:43 | Pulmonology Progress Note ---
Pulmonary - PN: Subj Interval history: Ms. Nash is a 66-year-old -[place] female who we saw in initial pulmonary consultation on 01/05/2017. At that time, our impressions were: 1. Igz-tilyxkj-qvezpfqeo diabetes mellitus 2. History of rheumatic fever and abnormal mitral valve followed by Dr. Rory Roche 3. Colon cancer with GI bleed 4. Long history of pancytopenia. 5. Allergic sinusitis in the good control 6. See past history 01/06/2017. The patient is out of the room and has been taken to surgery for colectomy as per Dr. Pratt, III. Chest x-ray yesterday showed no acute process. EKG shows an incomplete right bundle branch block. Labs showed a white count of 13,400 with 82.4% segs; H&H 11.0/34.0; platelet count has improved to 117,000 with platelet transfusion; creatinine 1.00, BUN 21, electrolytes are normal; liver function tests within normal limits; calcium 9.1 , albumin 3.2, total protein 6.4; for TSH and free T4 normal at 0.913 and 0.95 respectively; urinalysis showed no evidence of infection 01/07/2017. On 01/06/2017 patient had a laparoscopic right hemicolectomy. Path is pending. She complains of being sore this morning. Otherwise she has done very well. H&H is dropped to 8.4/25.8. White count is 9500 with 83 segs and 5 lymphs. Platelets are 178,000. Electrolytes are normal. Creatinine is 1.1 with a BUN of 19. Liver function tests are normal. Total protein and albumin are low at 5.4 and 2.7 respectively. Urinalysis is normal.Chest x-ray done 01/05 was normal. 01/08/2017. Dr. Mane Lopez reviewed the case and coordinated care. We will transfuse the patient with blood. Have increased her sliding scale. 01/09/2017. This patient had a colectomy on 01/06/2017. She is done very well but she has had no flatus thus far. She is much more comfortable today. Patient has a history of pancytopenia dating back years. She was transfused yesterday. H&H is 10.6/32.2. Potassium is low at 3.4. We will give replacement. Glucose is much better with adjustment of insulin and sliding scale which we did yesterday. This patient's outpatient hemoglobin A1c was elevated at 7.4. When this patient is converted to p.o. medicines for her diabetes. We will start her on glipizide 10 mg twice daily and metformin 500 mg twice daily. She should be eating close to normal before we start these. 01/12/2017. Patient's doing well. She has bowel movements and flatus. She has been able to eat vigorously with no problems. I discussed her elevated hemoglobin A1c and I discussed the changes in her medicines. She will go home on glipizide 10 mg twice a day and metformin 500 mg twice a day. She has a follow-up appointment. I agree with plans to discharge Physical exam. Vital signs. See below Psychiatric oriented 3 Neurologic. Cranial nerves are intact long track motor functions intact Face. Symmetrical. No swelling of the lips or tongue. Neck. Symmetrical with no meningismus. Lymphatics no submandibular cervical supraclavicular or epitrochlear adenopathy. Chest. Clear. Heart. No gallop Abdomen. Postsurgical. Soft. Bowel sounds are Extremities. Nothing to suggest deep venous thrombophlebitis The remainder the physical exam is noncontributory. Plan. 01/07/2017 1. Continue present regimen. 2. Watch H&H. Patient might require blood transfusion. 01/08/2017. 1. See today's note above. 2. Blood transfusion 3. Adjustments insulin 01/09/2017. 1. See today's note above. 2. No flatus 3. Once the patient is eating close to normal restart p.o. diabetic medicines as outlined in today's note above 01/12/2017. 1. See today's note above 2. Agree with plans to discharge. I will sign off. Please reconsult as needed Exam (Progress Note) - Constitutional Vitals: Period Temp Pulse Resp BP Sys/Cornell Pulse Ox Last 24 Hr 97.3 F-99.0 F 80-110 16-20 101-125/51-59 97-100 Results - Labs CBC & BMP: 01/12/17 03:46 01/11/17 01:39 Specialty Discharge - Follow Up or Referrals Follow up with: Tomi Pratt III., MD [Physician] - 01/15/17 3:00 pm Geoff Villanueva MD [Physician] - 02/09/17 10:45 am (APPT WITH IS ON January AT 1045AM FOR LAB WORK AND TO SEE THE DR AT 1245PM)
--- NOTE | 2017-01-12 11:56 | Discharge Summary ---
Hospital Course - Hospital Course Hospital Course: Ms Nash presented with rectal bleeding and symptomatic anemia manifested as fatigue. She was seen in consultation by GI who performed an EGD and colonoscopy a month prior which confirmed adenocarcinoma in the proximal ascending colon with a 2.5 cm ulcerated mass. GI felt the ulcerated mass was the source of the patient's current bleedingasked surgery to evaluate the patient for right sided hemicolectomy. Adenocarcinoma of the colon: Patient had a laparoscopic right hemicolectomy with mesenteric lymph nodes dissected. Pathology report returned invasive adenocarcinoma, mucinous, stage II A, pT3pN0. She tolerated the procedure well and remained hospitalized until she tolerated diet and had a bowel movement. Patient remained stable. Acute blood loss anemia: Ms. Nash received a total of 5 units packed red blood cells. Hemoglobin was monitored post surgery and noted to be stable. Patient will follow GI and surgery as an outpatient. Pancytopenia: According to the patient she has a history of thrombocytopenia. On admission she was noted to be pancytopenic, her white blood cell count was 3.3, hemoglobin 8 and platelet count 84. Patient was evaluated by oncology. She received 2 units of platelets and had a mild fever due to this. Oncology suspected that the patient may have a component of immune thrombocytopenia. She will follow-up as an outpatient. I spent 36 minutes coordinating this discharge. - Time spent with patient Time with patient DS: Greater than 30 minutes Diagnosis - Discharge Diagnosis (1) Colon cancer Status: Acute (2) Diabetes Status: Acute (3) Lower gastrointestinal hemorrhage Status: Acute (4) Acute blood loss anemia Status: Acute Specialty Discharge - Follow Up or Referrals Follow up with: Tomi Pratt III., MD [Physician] - 01/15/17 3:00 pm Geoff Villanueva MD [Physician] - 02/09/17 10:45 am (APPT WITH IS ON January AT 1045AM FOR LAB WORK AND TO SEE THE DR AT 1245PM) Discharge Plan - Discharge Data Disposition: Disch To Home/Self Care Condition at Discharge: Stable Discharge Diet: advance to your usual diet Activity: resume usual activities as tolerated Hygiene: no restrictions - Discharge Medications New glipiZIDE [Glucotrol] 10 mg PO BIDAC #60 tablet Continue Gabapentin 100 mg PO TID Cyanocobalamin Tab [Vitamin B12 Tab] 500 mcg PO QPM Metformin HCl 500 mg PO BID W/MEALS Pantoprazole Sodium 1 tablet PO DAILY Discontinued glipiZIDE [Glipizide] 5 mg PO BID W/MEALS Meloxicam [Mobic] 7.5 mg PO BID Aspirin EC Tab 325 mg PO DAILY - Follow Up or Referral Follow Up: Tomi Pratt III., MD [Physician] - 01/15/17 3:00 pm Geoff Villanueva MD [Physician] - 02/09/17 10:45 am (APPT WITH IS ON January AT 1045AM FOR LAB WORK AND TO SEE THE DR AT 1245PM) - Forms/Instructions Instructions: Rectal Bleeding (ED), Colectomy (DC) Exam - Constitutional Vitals: Period Temp Pulse Resp BP Sys/Cornell Pulse Ox Last 24 Hr 97.3 F-99.0 F 80-110 16-20 101-125/51-59 97-100 General appearance: normal weight, no acute distress - Head Head exam: Present: normal inspection, normocephalic, atraumatic - Eye Eye exam: Present: EOMI Pupils: Present: CINDY - ENT ENT exam: Present: normal exam - Neck Neck exam: Present: normal inspection - Respiratory Respiratory exam: Present: clear to auscultation bilaterally. Absent: accessory muscle use, prolonged expiratory phase, wheezes - Cardiovascular Cardiovascular exam: Present: regular rate and rhythm. Absent: bradycardia, irregular rhythm, systolic murmur - GI/Abdominal GI/Abdominal exam: Present: normal bowel sounds. Absent: ascites, hypoactive bowel sounds, tenderness - Extremities Exam Extremities exam: Present: normal inspection. Absent: normal capillary refill, full ROM Discharge Results Labs on day of discharge: Labs from last 24 hours 01/12/17 01/12/17 01/12/17 11:19 07:18 03:46 WBC 5.0 RBC 3.14 L Hgb 8.8 L Hct 27.0 L MCV 86.0 L MCH 28 MCHC 32.6 RDW 17.4 H Plt Count 79 L MPV 11.2 Neut % (Auto) 55.5 Lymph % (Auto) 21.2 L [place] % (Auto) 16.5 H Eos % (Auto) 6.0 Baso % (Auto) 0.4 Neut # (Auto) 2.8 Lymph # (Auto) 1.1 L [place] # (Auto) 0.8 Eos # (Auto) 0.3 Baso # (Auto) 0.0 Total Counted 100 Immature Gran % 0.4 Nucleated RBC % 0.0 Immature Gran # 0.02 Segmented Neutrophils 58 Lymphocytes 19 L Monocytes 16 H Eosinophils 7 Nucleated RBCs # 0.00 Platelet Estimate Decreased Hypochromasia 1+ Microcytosis Slight Morphology Comment POC Glucose 252 H 224 H 01/11/17 01/11/17 01/11/17 20:01 15:23 11:11 WBC RBC Hgb Hct MCV MCH MCHC RDW Plt Count MPV Neut % (Auto) Lymph % (Auto) [place] % (Auto) Eos % (Auto) Baso % (Auto) Neut # (Auto) Lymph # (Auto) [place] # (Auto) Eos # (Auto) Baso # (Auto) Total Counted Immature Gran % Nucleated RBC % Immature Gran # Segmented Neutrophils Lymphocytes Monocytes Eosinophils Nucleated RBCs # Platelet Estimate Hypochromasia Microcytosis Morphology Comment POC Glucose 316 H 163 H 399 H DS: Provider Date of admission: 01/02/17 13:13 Primary care physician: Aníbal Barone MD Attending physician on admission: Rose Marie Carter MD Consults: 01/02/17 13:13 Consult to Physician [CONS] Routine Comment: pt of yours for colectomy in for rectal bldg Consulting Provider: Tomi Pratt III. Consulting Provider Notified: Yes When should Consulting Provider be notified: Now Consult to Specialist Group: Surgery When should Consulting Provider be notified: Now Person Notified: MICHAEL Date Notified: 01/02/17 Time Notified: 14:30 01/02/17 15:12 Consult to Dietitian [CONS] Routine Reason for Dietitian: Other Consult Comment: weight loss, new dx ca colon. 01/02/17 16:26 Consult to Physician [CONS] Routine Comment: Pancytopenia and rectal bleeding Consulting Provider: Geoff Villanueva 01/04/17 11:13 Consult to Physician [CONS] Routine Comment: Patient known to you. Please follow. Consulting Provider: Aníbal Barone Consulting Provider Notified: No When should Consulting Provider be notified: Now Consult to Specialist Group: Pulmonology When should Consulting Provider be notified: Now Person Notified: ABDULAZIZ Date Notified: 01/05/17 Time Notified: 08:33 Discharging clinician: Rose Marie Carter MD Expected date of discharge: 01/12/17
[2017-01-12 12:53] VITALS: BP 113/56
[2017-01-12] MEDS ORDERED: glipiZIDE 10 MG TABLET PO SCH (16:30)
[2017-01-12] MEDS ORDERED: metFORMIN 500 MG TABLET PO SCH (17:00)
== END 2017-01-12 14:38 | disposition home or self-care (01) | DRG 330 ==
LOC: N.ED 10:29 → N.EDINP 13:13 → N.4E 13:57
PROVIDERS: ADMIT Internal Medicine; ATTEND Internal Medicine